=== PATIENT | male | born 1950 | race Caucasian/White ===

== ENCOUNTER 2019-07-05 18:00 | Inpatient (IN) | payer OTHER, MEDICARE, SELFPAY ==
[2019-07-05 18:13] VITALS: BP 156/94; PULSE 87; RESP 18; TEMP 36.4; O2SAT 93; BMI 59.1
--- NOTE | 2019-07-05 18:36 | CTR_ITS ---
PROCEDURE INFORMATION: Exam: CT Head Without Contrast Exam date and time: 07/05/2019 12:09 AM Age: 68 years old Clinical indication: Altered mental status/memory loss; Confusion or disorientation; Additional info: AMS TECHNIQUE: Imaging protocol: Computed tomography of the head without contrast. Total DLP: 1328.4 mGy-cm Radiation optimization: All CT scans at this facility use at least one of these dose optimization techniques: automated exposure control; mA and/or kV adjustment per patient size (includes targeted exams where dose is matched to clinical indication); or iterative reconstruction. COMPARISON: No relevant prior studies available. FINDINGS: Brain: There is mild cortical atrophy. There is no intracranial mass or hemorrhage. The expanded CSF spaces over the hemispheres are likely secondary to atrophy rather than chronic subdural hygromas. Midline shift: There is no shift of midline structures. Ventricles: Normal. No ventriculomegaly. Bones/joints: Unremarkable. No acute fracture. Sinuses: Visualized sinuses are unremarkable. No fluid levels. Mastoid air cells: Visualized mastoid air cells are well aerated. Soft tissues: Unremarkable. CT/CT head wo con* [id number] IMPRESSION: 1. Atrophy: 2. No acute intracranial finding. Radiation Dose CTDIVOL = (mGy): DLP = 1328.4 (mGy-cm)
[2019-07-05 19:21] LABS: Basophils % 0.2 %; Eosinophils # 0.1 10^3/uL (0.0-0.8); Eosinophils % 0.9 %; Hematocrit 31.4 % (42.0-52.0); Hemoglobin 8.1 g/dL (11.7-16.6); Lymphocytes # 0.6 10^3/uL (0.8-4.8); Lymphocytes % 5.5 %; Mean Corpuscular HGB Conc 25.8 g/dL (30.0-36.0); Mean Corpuscular Hemoglobin 22.3 pg (28.0-34.0); Mean Corpuscular Volume 86.3 fL (80-94); Mean Platelet Volume 8.8 fL (7.4-10.4); Monocytes # 0.6 10^3/uL (0.2-0.9); Monocytes % 6.2 %; Neutrophils # 8.6 10^3/uL (1.8-7.7); Neutrophils % 86.5 %; Nucleated Red Blood Cells % 0.4 %; Platelet Count 348 10^3/cmm (130-400); Red Blood Count 3.64 10^6/uL (4.1-5.3); Red Cell Distribution Width 22.5 % (12.1-15.1)
[2019-07-05 19:37] LABS: Alanine Aminotransferase 17 U/L (0-41); Albumin Level 3.2 g/dL (3.5-5.2); Alkaline Phosphatase 94 IU/L (40-130); Anion Gap 19.3 (5-19); Aspartate Amino Transferase 27 U/L (0-40); Blood Urea Nitrogen 52 mg/dL (8-23); Calcium 9.4 mg/Dl (8.8-10.2); Carbon Dioxide 20 mmol/L (22-29); Chloride 104 mmol/L (98-107); Globulin 4.5 g/dL (1.3-4.6); Glomerular Filtration Rate 17.5 mL/min (90-130); Glucose 150 mg/dL (74-106); Potassium 6.3 mmol/L (3.5-5.1); Sodium 137 mmol/L (136-145); Total Bilirubin 0.2 mg/dL (0.15-1.2); Total Protein 7.7 g/dL (6.6-8.7)
[2019-07-05 20:44] VITALS: BP 173/82; PULSE 94; RESP 18; O2SAT 90
--- NOTE | 2019-07-05 23:06 | W.ED.WEAKNES ---
HPI - Weakness General: Chief complaint: Weakness Stated complaint: AMS Time Seen by Provider: 07/05/19 23:06 [facility] ED PFSH: Statuses (acute, chronic, etc) shown below reflect problem list status as previously entered and may not be historically accurate Social History Smoking and tobacco status: former smoker Course Vital Signs: Vital signs: Vital Signs Temperature 97.5 F L 07/05/19 18:13 Pulse Rate 94 07/05/19 20:44 Respiratory Rate 18 07/05/19 20:44 Blood Pressure 173/82 07/05/19 20:44 Pulse Oximetry 90 07/05/19 20:44 MDM - Weakness Lab Data: Labs: Lab Results 07/05/19 07/05/19 Range/Units 09:01 09:01 WBC 10.0 (4.0-10.0) 10^3/ uL RBC 3.64 L (4.1-5.3) 10^6/u L Hgb 8.1 L (11.7-16.6) g/dL Hct 31.4 L (42.0-52.0) % MCV 86.3 (80-94) fL MCH 22.3 L (28.0-34.0) pg MCHC 25.8 L (30.0-36.0) g/dL RDW 22.5 H (12.1-15.1) % Plt Count 348 (130-400) 10^3/c mm MPV 8.8 (7.4-10.4) fL Neut % (Auto) 86.5 % Lymph % (Auto) 5.5 % [place] % (Auto) 6.2 % Eos % (Auto) 0.9 % Baso % (Auto) 0.2 % Neut # (Auto) 8.6 H (1.8-7.7) 10^3/u L Lymph # (Auto) 0.6 L (0.8-4.8) 10^3/u L [place] # (Auto) 0.6 (0.2-0.9) 10^3/u L Eos # (Auto) 0.1 (0.0-0.8) 10^3/u L Baso # (Auto) 0.0 (0.0-0.1) 10^3/u L Nucleated RBC % (a uto) 0.4 % Nucleated RBCs # 0.0 /100WBC Sodium 137 (136-145) mmol/L Potassium 6.3 H (3.5-5.1) mmol/L Chloride 104 (98-107) mmol/L Carbon Dioxide 20 L (22-29) mmol/L Anion Gap 19.3 H (5-19) BUN 52 H (8-23) mg/dL Creatinine 3.5 H (0.7-1.2) mg/dL GFR Calculation 17.5 L (90-130) mL/min Glucose 150 H (74-106) mg/dL Calcium 9.4 (8.8-10.2) mg/Dl Total Bilirubin 0.2 (0.15-1.2) mg/dL AST 27 (0-40) U/L ALT 17 (0-41) U/L Alkaline Phosphata se 94 (40-130) IU/L Total Protein 7.7 (6.6-8.7) g/dL Albumin 3.2 L (3.5-5.2) g/dL Globulin 4.5 (1.3-4.6) g/dL Discharge Plan Discharge Prescriptions: No Action potassium chloride 10 mEq Tablet Extended Release 10 meq PO DAILY RF: 0 amlodipine 10 mg Tablet 10 mg PO DAILY RF: 0 metformin 1,000 mg Tablet 1,000 mg PO BID RF: 0 furosemide 20 mg Tablet 20 mg PO DAILY RF: 0 lisinopril 40 mg Tablet 40 mg PO BID RF: 0 Laxative (sennosides) 25 mg Tablet 25 mg PO BID RF: 0 Stool Softener 100 mg Tablet 100 mg PO BID RF: 0 Coding Level of Care Code ED [facility] Manager for Alyceg Thierry
--- NOTE | 2019-07-05 23:10 | ED_ITS ---
Entered by Andra Rod, acting as scribe for Clayton Carter MD HPI - Weakness General: Chief complaint: Weakness Stated complaint: AMS Time Seen by Provider: 07/05/19 23:06 Source: patient Mode of arrival: wheelchair Limitations: no limitations History of Present Illness: HPI Narrative: 68 yo m came to the er with family for weakness. Onset was today. Pt states that he cannot walk anymore and that his legs are leaking fluid. Pt states that he also has multiple hernias as well. MD Complaint: generalized weakness Onset (ago): day(s) (today) Severity: mild Quality: numbness Relieving factors: none Exacerbating factors: none Associated symptoms: Denies chest pain, chills, easy bruising, fever(s), headache(s) or vomiting Review of Systems Const: Denies: fever or chills Eyes: Denies: change in vision ENMT: Denies: throat pain or mouth pain Card: Denies: chest pain Resp: Denies: shortness of breath GI: Denies: vomiting Musc: Denies: back pain or joint pain Skin/Breast: Denies: rash Neuro: Reports: difficulty walking; Denies: headache Psych: Denies: depression Endo: Denies: excessive urination [place]/Lymph: Denies: easy bruising All/Imm: Denies: hives PFSH ED PFSH: Statuses (acute, chronic, etc) shown below reflect problem list status as previously entered and may not be historically accurate Social History Smoking and tobacco status: former smoker Physical Exam Const: COMMON NORMALS: no apparent distress and healthy appearing HENMT: COMMON NORMALS: normocephalic and external nose normal HEAD & SCALP: normocephalic NOSE: external nose normal and no nasal discharge (nasal dischage) Eye: COMMON NORMALS: PERRL PUPIL: Yes PERRL Neck/C-Spine: COMMON NORMALS: full ROM and no lymphadenopathy Chest: COMMONS NORMALS: inspection of chest normal Resp: COMMON NORMALS: normal respiratory effort and clear to auscultation bilaterally AUSCULTATION: clear to auscultation bilaterally Cardio: COMMON NORMALS: regular rate and regular rhythm RATE: regular rate RHYTHM: regular rhythm GI: COMMON NORMALS: soft to palpation PALPATION: Yes soft Extremity: COMMON NORMALS: normal to inspection, full ROM and normal capillary refill Psych: COMMON NORMALS: mental status grossly normal and cooperative Skin: COMMON NORMALS: no rashes or lesions noted GENERAL SKIN EXAM: no rashes or lesions noted Course Vital Signs: Vital signs: Vital Signs Temperature 97.5 F L 07/05/19 18:13 Pulse Rate 94 07/05/19 20:44 Respiratory Rate 18 07/05/19 20:44 Blood Pressure 173/82 07/05/19 20:44 Pulse Oximetry 90 07/05/19 20:44 MDM - Weakness MDM Narrative: Medical decision making narrative: Patient presents here with generalized weakness and has acute kidney injury. Patient CT abdomen does show adrenal mass. I spoke to Dr. Rader who is admitting. Lab Data: Labs: Lab Results 07/05/19 07/05/19 07/05/19 Range/Units 19:01 19:01 23:28 WBC 10.0 (4.0-10.0) 10^3/ uL RBC 3.64 L (4.1-5.3) 10^6/u L Hgb 8.1 L (11.7-16.6) g/dL Hct 31.4 L (42.0-52.0) % MCV 86.3 (80-94) fL MCH 22.3 L (28.0-34.0) pg MCHC 25.8 L (30.0-36.0) g/dL RDW 22.5 H (12.1-15.1) % Plt Count 348 (130-400) 10^3/c mm MPV 8.8 (7.4-10.4) fL Neut % (Auto) 86.5 % Lymph % (Auto) 5.5 % [place] % (Auto) 6.2 % Eos % (Auto) 0.9 % Baso % (Auto) 0.2 % Neut # (Auto) 8.6 H (1.8-7.7) 10^3/u L Lymph # (Auto) 0.6 L (0.8-4.8) 10^3/u L [place] # (Auto) 0.6 (0.2-0.9) 10^3/u L Eos # (Auto) 0.1 (0.0-0.8) 10^3/u L Baso # (Auto) 0.0 (0.0-0.1) 10^3/u L Nucleated RBC % (a uto) 0.4 % Nucleated RBCs # 0.0 /100WBC Sodium 137 (136-145) mmol/L Potassium 6.3 H (3.5-5.1) mmol/L Chloride 104 (98-107) mmol/L Carbon Dioxide 20 L (22-29) mmol/L Anion Gap 19.3 H (5-19) BUN 52 H (8-23) mg/dL Creatinine 3.5 H (0.7-1.2) mg/dL GFR Calculation 17.5 L (90-130) mL/min Glucose 150 H (74-106) mg/dL Calcium 9.4 (8.8-10.2) mg/Dl Total Bilirubin 0.2 (0.15-1.2) mg/dL AST 27 (0-40) U/L ALT 17 (0-41) U/L Alkaline Phosphata se 94 (40-130) IU/L Ammonia 36 (16-60) umol/L Troponin T Baselin e (0-15) ng/mL Troponin T 120 Min [place] (0-15) ng/mL Delta Troponin T (0-10) ABS# Total Protein 7.7 (6.6-8.7) g/dL Albumin 3.2 L (3.5-5.2) g/dL Globulin 4.5 (1.3-4.6) g/dL 07/05/19 07/06/19 Range/Units 23:28 01:12 WBC (4.0-10.0) 10^3/ uL RBC (4.1-5.3) 10^6/u L Hgb (11.7-16.6) g/dL Hct (42.0-52.0) % MCV (80-94) fL MCH (28.0-34.0) pg MCHC (30.0-36.0) g/dL RDW (12.1-15.1) % Plt Count (130-400) 10^3/c mm MPV (7.4-10.4) fL Neut % (Auto) % Lymph % (Auto) % [place] % (Auto) % Eos % (Auto) % Baso % (Auto) % Neut # (Auto) (1.8-7.7) 10^3/u L Lymph # (Auto) (0.8-4.8) 10^3/u L [place] # (Auto) (0.2-0.9) 10^3/u L Eos # (Auto) (0.0-0.8) 10^3/u L Baso # (Auto) (0.0-0.1) 10^3/u L Nucleated RBC % (a uto) % Nucleated RBCs # /100WBC Sodium (136-145) mmol/L Potassium (3.5-5.1) mmol/L Chloride (98-107) mmol/L Carbon Dioxide (22-29) mmol/L Anion Gap (5-19) BUN (8-23) mg/dL Creatinine (0.7-1.2) mg/dL GFR Calculation (90-130) mL/min Glucose (74-106) mg/dL Calcium (8.8-10.2) mg/Dl Total Bilirubin (0.15-1.2) mg/dL AST (0-40) U/L ALT (0-41) U/L Alkaline Phosphata se (40-130) IU/L Ammonia (16-60) umol/L Troponin T Baselin e 96 H (0-15) ng/mL Troponin T 120 Min [place] 95.68 H (0-15) ng/mL Delta Troponin T -0.32 L (0-10) ABS# Total Protein (6.6-8.7) g/dL Albumin (3.5-5.2) g/dL Globulin (1.3-4.6) g/dL EKG Data^: EKG 1: EKG interpretation date: 07/05/19 EKG interpretation time: 23:44 Interpretation: nsr hr [address] or t wave abnormalities qrs 98 qtc 402 EKG 2: EKG interpretation date: 07/06/19 EKG interpretation time: 02:02 Interpretation: nsr hr [address] or t wave abnormalities Discharge Plan Discharge Patient Disposition: Admitted As Inpatient Clinical Impression: Weakness, Acute kidney injury Condition: Stable Referrals: Meliton Mario Jr, MD [Family Provider] - Coding Level of Care Code ED Coding Analyst for Chg Fwd Exam Problem Focused The documentation recorded by the scribe, Rod,Andra Kayla, accurately reflects the service I personally performed and the decisions made by me, Clayton Carter MD Jul 05, 2019 18:00
--- NOTE | 2019-07-05 23:13 | ECG_ITS ---
Measurements Intervals [place] Rate: 82 P: 95 PA: 182 QRS: 10 QRSD: 98 T: 85 QT: 363 QTc: 426 SINUS RHYTHM WITH MARKED SINUS ARRHYTHMIA POSSIBLE ANTERIOR MYOCARDIAL INFARCTION , PROBABLY OLD [30 ms Q WAVE IN V3/V4, OR R < 0.2 mV IN V4] Compared to ECG 11/02/2016 00:51:21 No significant changes Electronically Signed On 07-06-2019 19:20:18 CALL CENTER NURSE by Janet Hopson M.D. [email or web address]
--- NOTE | 2019-07-05 23:13 | CTR_ITS ---
PROCEDURE INFORMATION: Exam: CT Abdomen And Pelvis Without Contrast Exam date and time: 07/05/2019 12:09 AM Age: 68 years old Clinical indication: Abdominal pain; Generalized TECHNIQUE: Imaging protocol: Computed tomography of the abdomen and pelvis without contrast. Total DLP: 2691.34 mGy-cm Radiation optimization: All CT scans at this facility use at least one of these dose optimization techniques: automated exposure control; mA and/or kV adjustment per patient size (includes targeted exams where dose is matched to clinical indication); or iterative reconstruction. COMPARISON: CT Abdomen w IV contras* [id number] 11/02/2016 1:57 PM FINDINGS: Limitations: The absence of intravenous contrast lessens the sensitivity of this study for solid organ abnormalities. Mediastinum: There is a small hiatal hernia. Liver: There is no focal abnormality within the liver. Gallbladder and bile ducts: The gallbladder is normal. Pancreas: The pancreas is normal. Spleen: The spleen is normal. Adrenals: There is a right adrenal mass measuring 4.0 x 4.6 by 4.9 cm which is larger than on 11/02/2016 when it measured approximately 3.3 x 4.3 x 3.8 cm. In patient with no cancer history, consider resection. In patient with cancer history, consider biopsy or PET-CT. ([facility], ACR White Paper, 2017) Kidneys and ureters: The kidneys are normal. There is no evidence of renal or ureteral calcifications. There is no evidence of hydronephrosis. Stomach and bowel: There is a large hypogastric ventral hernia containing several loops of bowel without incarceration or obstruction. Appendix: No appendix is specifically identified. There is no evidence of fluid collections or inflammatory stranding in the right lower quadrant. Intraperitoneal space: Unremarkable. No free air. No significant fluid collection. Vasculature: Unremarkable. No abdominal aortic aneurysm. Lymph nodes: Unremarkable. No enlarged lymph nodes. Bladder: Unremarkable as visualized. Reproductive: Unremarkable as visualized. Bones/joints: The lumbar spine demonstrates moderate degenerative changes at multiple levels. Soft tissues: Unremarkable. CT/CT abdomen pelvis wo con [id number] IMPRESSION: 1. Enlarging right adrenal mass, further evaluation is recommended 2. Large ventral hernia 3. No acute finding Radiation Dose CTDIVOL = (mGy): DLP = 2691.34 (mGy-cm)
[2019-07-06] VITALS (8 sets, daily range): BP systolic 141–176; BP diastolic 63–84; PULSE 72–92; RESP 12–22; TEMP 36.6–36.9; O2SAT 91–95
[2019-07-06 00:12] LABS: Ammonia 36 umol/L (16-60)
[2019-07-06 00:14] LABS: Troponin(5th) Baseline 96 ng/mL (0-15)
--- NOTE | 2019-07-06 01:13 | ECG_ITS ---
Measurements Intervals [place] Rate: 78 P: 83 ID: [id number] QRS: 19 QRSD: 101 T: 76 QT: 383 QTc: 436 SINUS RHYTHM WITH SINUS ARRHYTHMIA POSSIBLE ANTERIOR MYOCARDIAL INFARCTION , PROBABLY OLD [30 ms Q WAVE IN V3/V4, OR R < 0.2 mV IN V4] Compared to ECG 11/02/2016 00:51:21 No significant changes Electronically Signed On 07-06-2019 19:23:01 ELECTRONEURODIAGNOSTIC TECHNOLOGIST by Janet Hopson M.D. [email or web address]
[2019-07-06] MEDS: sodium chloride 0.9% 1,000 ML 999 ML IV (01:51)
[2019-07-06 02:08] LABS: Troponin 5 2HR 95.68 ng/mL (0-15)
[2019-07-06 02:11] LABS: Troponin 5 2HR Delta -0.32 ABS# (0-10)
--- NOTE | 2019-07-06 02:15 | ECG_ITS ---
Measurements Intervals [place] Rate: 78 P: 83 [place]: 183 QRS: 19 QRSD: 101 T: 76 QT: 383 QTc: 436 SINUS RHYTHM WITH SINUS ARRHYTHMIA POSSIBLE ANTERIOR MYOCARDIAL INFARCTION , PROBABLY OLD [30 ms Q WAVE IN V3/V4, OR R < 0.2 mV IN V4] Compared to ECG 11/02/2016 00:51:21 No significant changes Electronically Signed On 07-06-2019 19:20:32 HYDRAULIC PLUMBER HELPER by Janet Hopson M.D. [email or web address]
--- NOTE | 2019-07-06 02:25 | P.HP_ITS ---
Providers/Chief Complaint Admitting Physician: Anna Rader Primary Care Provider: Lou Kamara Chief Complaint: AMS History of Present Illness Dominga Mosqueda is a 68 year old male who presented to the emergency room with a chief complaint of weakness and not acting right since Friday. His states that prior to that he had been slowly getting weaker and more short of breath with exertion but things seem to change on Friday. He became so weak he was falling down and having difficulty and sometimes even inability to get up. He started saying crazy things which is not like him. Because he was so weak he quit drinking so he would not have to get up to go to the bathroom. He has been having increasing oozing from his groin area and increase and abdominal girth. He knows he has gained some weight but is not sure exactly how much. He has had increasing nonproductive cough, sounds like some orthopnea combined with limitations related to back discomfort. He has had decreased urine output but denies any difficulty urinating. He was last seen by his primary care provider and in January or February. No recent changes to medications. Wears KIRTI hose chronically. On arrival to the emergency room, vital signs were stable but patient was found to have an elevated creatinine at 3.5 and a potassium of 6.3. He received a liter of fluid in the emergency room. He was complaining of some abdominal discomfort related to his abdominal wall hernias and increasing issues with constipation secondary to this. CT of the abdomen and pelvis was done revealing an enlarging adrenal mass on the right side. There is no hydronephrosis. The hypogastric ventral hernia contains several loops of bowel but no evidence of incarceration or obstruction are noted. CT of the head was also unremarkable for acute findings. With his clinical presentation and laboratory abnormalities, he is being admitted for further evaluation and treatment. His only other complaint is being raw in the groin. Review of Systems Const: Reports: chills, change in weight (gain) and snoring; Denies: fever Eyes: Denies: change in vision ENMT: Reports: other (dry); Denies: throat pain or nasal congestion Card: Denies: chest pain, palpitations or lightheadedness Resp: Reports: shortness of breath, non-productive cough (mild) and other (orthopnea) GI: Reports: abdominal pain and constipation; Denies: nausea or vomiting : Reports: decreased urine ouput; Denies: difficulty urinating Musc: Reports: back pain Skin/Breast: Reports: rash (raw in groin); Denies: sores Neuro: Reports: confusion and involuntary movements (recently worse, had been progressing over the last 6 months) Darvin/Lymph: Reports: easy bruising; Denies: easy bleeding Medications/Allergies Home Medications Medication Instructions Recorded Confirmed Last Taken Type amlodipine 10 mg PO DAILY 07/05/19 07/05/19 07/05/19 History docusate sodium [Stool Softener] 100 mg PO BID 07/05/19 07/05/19 07/05/19 History furosemide 20 mg PO DAILY 07/05/19 07/05/19 07/05/19 History lisinopril 40 mg PO BID 07/05/19 07/05/19 07/05/19 History metformin 1,000 mg PO BID 07/05/19 07/05/19 07/05/19 History potassium chloride 10 meq PO DAILY 07/05/19 07/05/19 07/05/19 History sennosides [Laxative (sennosides)] 25 mg PO BID 07/05/19 07/05/19 07/05/19 History Allergies Allergy/AdvReac Type Severity Reaction Status Date / Time No Known Allergies Allergy Verified 07/05/19 18:21 PFSH Acute PFSH: Statuses (acute, chronic, etc) shown below reflect problem list status as previously entered and may not be historically accurate Medical History (Updated 07/06/19 @ 04:18 by Anna Rader MD) Hypertension (Acute) Morbid obesity (Acute) Prediabetes (Acute) patient report, on metformin Ventral hernia (Acute) Surgical History (Updated 07/06/19 @ 02:54 by Anna Rader MD) S/P vasectomy (Acute) Status post surgical removal of nail matrix of toe (Acute) Family History (Updated 07/06/19 @ 02:46 by Anna Rader MD) Other Diabetes Denies family history of CAD (coronary artery disease) Chronic kidney disease (CKD) Social History (Updated 07/06/19 @ 02:45 by Anna Rader MD) Smoking and tobacco status: current some day smoker cigars Cigar details: rare Alcohol intake: never Substance/Drug Use: never Vitals/I&O/Wt Last Vital Signs Temp 97.5 F L 07/05/19 18:13 Pulse 94 07/05/19 20:44 Resp 18 07/05/19 20:44 BP 173/82 07/05/19 20:44 Pulse Ox 90 07/05/19 20:44 Weight last 48 hrs Weight 181.437 kg Physical Exam Const: COMMON NORMALS: no apparent distress, oriented x3 and alert GENERAL APPEARANCE: cooperative NUTRITIONAL APPEARANCE: obese morbidly obese SALTY ENTATION/CONSCIOUSNESS: Yes confused (intermittent) HENMT: COMMON NORMALS: normocephalic and head/scalp atraumatic Eye: COMMON NORMALS: PERRL, EOMs intact bilaterally and no scleral icterus Neck/C-Spine: COMMON NORMALS: full ROM Resp: COMMON NORMALS: clear to auscultation bilaterally EFFORT & INSPECTION: Yes able to speak in complete sentences and Yes symmetric chest movement AUSCULTATION: no rales, no rhonchi, no wheezes and diminished lung sounds bilateral in the lower lung hunter Cardio: COMMON NORMALS: regular rate and regular rhythm; negative for no gallops, negative for no murmurs and negative for no rub JUGULAR VENOUS DISTENTION: JVD positive to the level of the angle of the jaw GI: COMMON NORMALS: negative for non-tender OTHER: Abdomen morbidly obese. Large pannus with peau d'orange appearance. Large ventral hernia below and including the umbilicus that is reducible. Degree of edema increases distally. No obvious oozing presently. : COMMON NORMALS: Yes no scrotal swelling PENIS: normal penis OTHER: Grossly edematous suprapubic area Extremity: GENERAL: Yes edema (1+ bilateral lower extremities, KIRTI hose are in place) Neuro: COMMON NORMALS: moves all extremities GAIT: Yes unable to assess gait MOTOR EXAM: tremor resting tremor bialteral upper extremity Skin: NARRATIVE SKIN EXAM: Patient with some mild excoriation in bilateral groins with drainage of some serous fluid. He has erythema with satellite lesions and significant odor. No open wounds otherwise noted. In the buttock area there is some ecchymotic appearing tissue that I think may be some varicosity. He has some bruising to both upper extremities and some chronic stasis changes with scabbing to both lower extremities. No open wounds noted to the lower extremities.. Urinary Catheter Management^: Allen: Cath Placed During This Visit: yes (will be placed) Urethral Indwelling: Yes Reason for Continuing Indwelling Catheter: Other (Accurate measurement of urine output in a patient with renal failure, wound management) Data Labs: Other Labs: Laboratory Tests 07/05/19 07/05/19 07/05/19 19:01 19:01 23:28 WBC 10.0 Hgb 8.1 L Hct 31.4 L Plt Count 348 Sodium 137 Potassium 6.3 H Chloride 104 Carbon Dioxide 20 L Anion Gap 19.3 H BUN 52 H Creatinine 3.5 H GFR Calculation 17.5 L Glucose 150 H Calcium 9.4 Total Bilirubin 0.2 AST 27 ALT 17 Alkaline Phosphata se 94 Ammonia 36 Troponin T Baselin e Troponin T 120 Min [place] Delta Troponin T Total Protein 7.7 Albumin 3.2 L Globulin 4.5 07/05/19 07/06/19 07/06/19 23:28 01:12 01:12 WBC Hgb Hct Plt Count Sodium Potassium 5.7 H Chloride Carbon Dioxide Anion Gap BUN Creatinine GFR Calculation Glucose Calcium Total Bilirubin AST ALT Alkaline Phosphata se Ammonia Troponin T Baselin e 96 H Troponin T 120 Min [place] 95.68 H Delta Troponin T -0.32 L Total Protein Albumin Globulin Imaging^: CT Abd/Pel: Radiologist's impression: IMPRESSION: 1. Enlarging right adrenal mass, further evaluation is recommended 2. Large ventral hernia 3. No acute finding CT Head: Radiologist's impression: IMPRESSION: 1. Atrophy: 2. No acute intracranial finding. EKG^: EKG 1: I personally reviewed and interpreted this EKG as follows: My Interpretation: EKG was slightly prominent T waves, nonspecific anterior changes, sinus rhythm 82 with some sinus arrhythmia EKG 2: I personally reviewed and interpreted this EKG as follows: My Interpretation: Third EKG with less prominent T waves, sinus rhythm 78 with some nonspecific anterior changes, A&P Assessment and plan (1) Weakness: Multifactorial related to recent electrolyte changes, fluid overload Status: Acute Code(s): R53.1 - Weakness (2) Acute renal failure: Suspect patient has some undiagnosed chronic kidney disease with recent development of acute renal failure related to decreasing oral intake and continuation of medications such as ARCHANA inhibitor, diuretic and metformin. Suspect some degree of poor perfusion contributing as well. Monitor response to treatment, check UA Status: Acute Qualifiers: Acute renal failure type: with acute tubular necrosis Qualified Code(s): N17.0 - Acute kidney failure with tubular necrosis Code(s): N17.9 - Acute kidney failure, unspecified (3) Hyperkalemia: Hold home potassium, initially treating with some fluids and will need some IV Lasix. We will give 1 dose of Kayexalate. Status: Acute Code(s): E87.5 - Hyperkalemia (4) Adrenal mass: Identified on CT imaging and noted to be increasing in size. Will need further evaluation but would like to get some of the acute issues improved first. Will check a random cortisol presently and further evaluation can likely be arranged in the outpatient setting depending on clinical course. Status: Acute Code(s): E27.8 - Other specified disorders of adrenal gland (5) Tinea corporis: Nystatin powder and Diflucan x1 dose Status: Acute Code(s): B35.4 - Tinea corporis (6) Hypertension: Chronically on amlodipine and diuretic therapy. And holding both initially. Anticipate resumption of diuretic therapy soon. May have to consider holding amlodipine but have continued it presently. Status: Acute Qualifiers: Hypertension type: renovascular hypertension Qualified Code(s): I15.0 - Renovascular hypertension Code(s): I10 - Essential (primary) hypertension (7) Chronic edema: Denies any history of heart failure. Has been on diuretics in the past due to edema. Does not recall ever having had an echocardiogram. He has had issues with morbid obesity and some may be related to this but I suspect he probably has some degree of diastolic dysfunction from obesity hypoventilation and possibly undiagnosed sleep apnea. Status: Acute Code(s): R60.9 - Edema, unspecified (8) Prediabetes: Blood sugars are slightly elevated on arrival. Holding metformin due to renal dysfunction. Will check A1c and cover with some insulin in interim Status: Acute Code(s): R73.03 - Prediabetes (9) Tremor: Sounds like present but intermittent for ~6 months. Worse over weekend. Suspect related to metabolic abnormalities. Status: Acute Code(s): R25.1 - Tremor, unspecified (10) Morbid obesity: With BMI 59 Status: Acute Code(s): E66.01 - Morbid (severe) obesity due to excess calories Additional A&P Information Additional A&P Information: Admitting to medical bed with telemetry with plan to treat hyperkalemia and acute renal failure with some fluids overnight. Anticipate transition to diuretic therapy tomorrow. Holding Lasix, lisinopril, metformin. I have ordered a Allen catheter due to the fact that we need to keep a close eye on urine output under the circumstances combined with the skin findings in the groin area and need to keep this area dry. We will watch what I's and O's closely. Lovenox for DVT prophylaxis Full code Plans discussed with patient and his and both were given an opportunity to ask questions Attestations Medical Necessity Statement*: Patient is a 68-year-old gentleman with acute renal failure, hyperkalemia, significant weakness and significant volume overload in addition to other issues noted above. He has progressively declined at home and anticipate his stay will require more than 2 midnights for correction of metabolic and other abnormalities indicated. Coding Level of Care Code Acute Adventure Education Teacher for Gisela Guadarrama Diagnoses Weakness R53.1 Acute renal failure N17.0 Acute renal failure type: with acute tubular necrosis Hyperkalemia E87.5 Adrenal mass E27.8 Tinea corporis B35.4 Hypertension I15.0 Hypertension type: renovascular hypertension Chronic edema R60.9 Prediabetes R73.03 Tremor R25.1 Morbid obesity E66.01
[2019-07-06 03:43] LABS: Potassium 5.7 mmol/L (3.5-5.1)
[2019-07-06 04:08] LABS: Add On to Lab Order(s) Added
[2019-07-06] MEDS: sodium chloride 0.9% 1,000 ML 125 ML IV ×2 (04:28→12:08)
[2019-07-06] MEDS: heparin 5,000 unit/mL INJ 1 mL 5000 UNIT SUBCUT ×2 (04:28→16:21)
--- NOTE | 2019-07-06 05:13 | ECG_ITS ---
Measurements Intervals [place] Rate: 78 P: 78 ME: 175 QRS: 28 QRSD: 106 T: 85 QT: 377 QTc: 431 SINUS RHYTHM WITH OCCASIONAL SUPRAVENTRICULAR PREMATURE COMPLEXES LOW QRS VOLTAGE IN PRECORDIAL LEADS [QRS DEFLECTION < 1.0 mV IN CHEST LEADS] POSSIBLE ANTERIOR MYOCARDIAL INFARCTION [30 ms Q WAVE IN V3/V4, OR R < 0.2 mV IN V4], PROBABLY OLD Compared to ECG 11/02/2016 00:51:21 No significant changes Electronically Signed On 07-06-2019 19:23:06 MAINTENANCE PARTS TECHNICIAN by Janet Hopson M.D. [email or web address]
[2019-07-06] MEDS: fluconazole 100 mg Tablet 200 MG PO (05:57)
[2019-07-06] MEDS: sodium polystyrene sulfonate 15 gm/60 mL Btl PO (05:58)
[2019-07-06 06:09] LABS: Magnesium 2.3 mg/dL (1.7-2.3); Phosphorus 5.3 mg/dL (2.5-4.5); Troponin 5 6HR 99.71 ng/L (0-15)
[2019-07-06 06:16] LABS: Troponin 5 6HR Delta 3.71 ng/L (0-12)
[2019-07-06 06:22] LABS: Urine Appearance Clear (CLEAR); Urine Color Yellow (Yellow); pH Urine 5 (5-7)
[2019-07-06 06:23] LABS: Add Urine Culture? No; Add Urine Microscopic? YES; Bacteria Urine 1+; Bilirubin Urine Neg (NEGATIVE); Blood Urine Neg (Negative); Glucose Urine UA Norm (Normal); Ketones Urine Negative (Negative); Leukocyte Esterase Urine Negative (Negative); Nitrate Urine Negative (Negative); Protein Urine 3+ (Negative); RBC Urine RARE /hpf (0-2); Urobilinogen Urine Norm (Negative)
[2019-07-06 07:14] LABS: NT Pro B Type Natriuretic Pept 17 pg/mL (0-125)
[2019-07-06 07:15] LABS: Glucose Point of Care 188 mg/dL (70-110)
[2019-07-06 07:40] LABS: Urine Creatinine 113 mg/dL (39-259); Urine Random Sodium 42 mmol/L
[2019-07-06 07:42] LABS: Basophils % 0.3 %; Eosinophils # 0.1 10^3/uL (0.0-0.8); Eosinophils % 0.9 %; Hematocrit 27.4 % (42.0-52.0); Hemoglobin 7.3 g/dL (11.7-16.6); Lymphocytes # 0.8 10^3/uL (0.8-4.8); Mean Corpuscular HGB Conc 26.6 g/dL (30.0-36.0); Mean Corpuscular Hemoglobin 22.4 pg (28.0-34.0); Mean Platelet Volume 9.1 fL (7.4-10.4); Monocytes # 0.7 10^3/uL (0.2-0.9); Monocytes % 7.4 %; Neutrophils # 7.8 10^3/uL (1.8-7.7); Neutrophils % 82.1 %; Nucleated Red Blood Cells # 0.1 /100WBC; Nucleated Red Blood Cells % 0.5 %; Platelet Count 372 10^3/cmm (130-400); Red Blood Count 3.26 10^6/uL (4.1-5.3); Red Cell Distribution Width 22.1 % (12.1-15.1); White Blood Count 9.5 10^3/uL (4.0-10.0)
[2019-07-06 08:43] LABS: Add On to Lab Order(s) Added
[2019-07-06 09:09] LABS: Estmated Average Glucose 157; Hemoglobin A1C 7.1 % (4.0-6.0)
[2019-07-06 09:21] LABS: Anion Gap 18.8 (5-19); Blood Urea Nitrogen 51 mg/dL (8-23); Calcium 9.1 mg/Dl (8.8-10.2); Carbon Dioxide 20 mmol/L (22-29); Chloride 106 mmol/L (98-107); Glomerular Filtration Rate 17.5 mL/min (90-130); Glucose 160 mg/dL (74-106); Potassium 5.8 mmol/L (3.5-5.1); Sodium 139 mmol/L (136-145); Uric Acid 9.8 mg/dL (3.4-7.0)
[2019-07-06] MEDS: docusate sodium 100 mg Capsule PO ×2 (09:56→19:50)
[2019-07-06] MEDS: amlodipine 10 mg Tablet PO (09:56)
[2019-07-06 10:05] LABS: Cortisol Random 8.65 mcg/dL (2.47-19.5)
[2019-07-06 11:37] LABS: Glucose Point of Care 140 mg/dL (70-110)
[2019-07-06] MEDS: nystatin powder 15 gm Btl 1 APPLIC TOPICAL ×2 (12:04→19:51)
--- NOTE | 2019-07-06 12:24 | P.PN_ITS ---
Subjective Subjective: Interval history: Chart reviewed including on [employer]. Labs noted. Patient seen and examined, and son at bedside, patient sitting up in bed, aware that he is in the hospital, is able to collaborate history documented in H&P, below which the patient is able to provide himself. Reportedly does not sleep in bed and has been quite uncomfortable here since admission. Spends most of his time sitting up in a recliner due to inability to maintain supine position due to aggravated back pain. Started on diabetic diet. Allen catheter in place, noted concentrated urine in bag. Medications: Reviewed: Yes Medication Review Details: Active Medications Generic Name Dose Route Start Last Admin Trade Name Freq PRN Reason Stop Dose Admin Acetaminophen 650 mg 07/06/19 03:26 Tylenol PO Q6H PRN Mild/Mod Pain Or Temp >/= 101 Amlodipine Besylat e 10 mg 07/06/19 09:00 07/06/19 09:56 Norvasc PO 10 mg DAILY SANDRA Administration Dextrose 25 ml 07/06/19 04:15 D50w IVP ONCE PRN hypoglycemia prot ocol Protocol Dextrose 50 ml 07/06/19 04:15 D50w IVP PRN PRN hypoglycemia prot ocol Protocol Docusate Sodium 100 mg 07/06/19 09:00 07/06/19 09:56 Colace PO 100 mg BID SANDRA Administration Glucagon 1 mg 07/06/19 04:15 Glucagen IM ONCE PRN Adult Acute Hypog lycemia Prot. Protocol Heparin Sodium (Be ef Lung) 5,000 unit 07/06/19 03:26 07/06/19 04:28 Heparin SUBCUT 5,000 unit Q12H SANDRA Administration Sodium Chloride 1,000 mls @ 75 ml s/hr 07/06/19 03:26 07/06/19 12:08 Sodium Chloride 0.9% IV 125 mls/hr .[id number] SANDRA Administration Dextrose 500 mls @ 100 mls /hr 07/06/19 04:15 D5w IV ONCE PRN Adult Acute Hypog lycemia Prot Protocol Insulin Aspart 0 unit 07/06/19 08:00 07/06/19 12:08 Novolog SUBCUT Not Given WM&BEDTIME SANDRA Protocol Nystatin 1 applic 07/06/19 09:00 07/06/19 12:04 Nystatin Powder TOPICAL 1 mg BID SANDRA Administration Ondansetron HCl 4 mg 07/06/19 03:26 Zofran PO Q8H PRN NAUSEA No Known Allergies Allergy (Verified 07/05/19 18:21) Vitals/I&O/Wt Last Vital Signs Temp 98.4 F 07/06/19 10:54 Pulse 82 07/06/19 10:54 Resp 18 07/06/19 10:54 BP 141/63 07/06/19 10:54 Pulse Ox 91 07/06/19 10:54 07/05/19 07/06/19 07/06/19 22:59 06:59 14:59 Intake Total 1318.333 / 1318.333 Output Total 150 / 150 Balance 1168.333 / 1168.333 Weight last 48 hrs Weight 200.76 kg Weight 181.437 kg Physical Exam Const: COMMON NORMALS: no apparent distress and alert GENERAL APPEARANCE: not comfortable (Appears somewhat visibly uncomfortable; unable to lay down) NUTRITIONAL APPEARANCE: obese (Severely morbidly obese) ORIENTATION/CONSCIOUSNESS: Yes oriented to person, Yes oriented to place and Yes oriented to time HENMT: COMMON NORMALS: normocephalic and head/scalp atraumatic HEAD & SCALP: normocephalic and atraumatic Eye: COMMON NORMALS: PERRL, EOMs intact bilaterally and no scleral icterus PUPIL: Yes PERRL Neck/C-Spine: GENERAL: Yes other (short, thick neck) Resp: COMMON NORMALS: normal respiratory effort EFFORT & INSPECTION: Yes able to speak in complete sentences and Yes other (examination significantly limited by body habitus, on RA) Cardio: COMMON NORMALS: regular rate, regular rhythm, S1 normal heart sound and S2 normal heart sound RATE: regular rate RHYTHM: regular rhythm HEART SOUNDS: S1 normal and S2 normal OTHER: exam limited by body habitus GI: INSPECTION: Yes abdominal wall edema Laterality: bilateral, Yes central obesity (large pannus) and Yes visible herniation (umbilical and ventral, both reducible) : BLADDER/KIDNEY EXAM: Yes catheter in place Catheter type (Male): urethral Extremity: OTHER: Noted brawny edema of bilateral LEs Neuro: SENSORIUM/ORIENTATION: Yes alert, Yes oriented to person, Yes oriented to place and Yes oriented to time GAIT: Yes unable to assess gait (currently unable to weight-bear) Psych: COMMON NORMALS: cooperative and affect normal Skin: GENERAL SKIN EXAM: other (Noted brawny edema of bilateral lower extremities) Urinary Catheter Management^: Allen: Cath Placed During This Visit: yes Urethral Indwelling: Yes Reason for Continuing Indwelling Catheter: Other (impaired ambulation and need for accurate Is & Os) Urinary Catheter Date of Insertion: 07/06/19 A&P Assessment and plan (1) Acute metabolic encephalopathy: -Noted to have multiple electrolyte abnormalities and renal impairment (uremia) -Baseline mental status appears to be alert and oriented x3 -CT head indicative of atrophy, no other acute findings -correction of electrolytes and renal function as noted below -fall precautions -reorient as needed -no signs of acute infection at this time Status: Acute Code(s): G93.41 - Metabolic encephalopathy (2) Acute renal failure: -from review of medical record, appears to have at least CKD stage 3, with prior baseline creatinine around 1.5-1.6. -Suspect acute renal impairment is multifactorial given medications such as ARCHANA inhibitor, diuretics, potassium supplements, and metformin all of which are currently on hold. -Avoid other nephrotoxins, renally dose meds -Imaging reviewed with noted normal kidneys, no indication of hydronephrosis -UA noted with proteinuria, sterile bacteriuria -Continue gentle IV fluid hydration -Noted slight increase in phosphorus, uric acid. Magnesium within normal limi ts. -Continue to monitor electrolytes particularly potassium; and renal function -Allen catheter placed, continue to monitor urine output Status: Acute Qualifiers: Acute renal failure type: with acute tubular necrosis Qualified Code(s): N17.0 - Acute kidney failure with tubular necrosis Code(s): N17.9 - Acute kidney failure, unspecified (3) Adrenal mass: -Noted enlarging right adrenal mass which had been noted in CT scan of the abdomen done in October 2016; at that time was suspicious for adenoma. Will likely need follow-up evaluation/imaging -Random cortisol within normal limits Status: Acute Code(s): E27.8 - Other specified disorders of adrenal gland (4) Weakness: -Likely related to acute electrolyte abnormalities -Fall precautions -PT/OT evaluations Status: Acute Code(s): R53.1 - Weakness Additional A&P Information Additional A&P Information: -Morbid obesity: BMI-65 kg/m2 -Acute on chronic normocytic anemia, has history of iron deficiency anemia. Baseline hemoglobin appears to be 8-9. Continue to monitor H&H closely. Transfuse if continued drop and/or symptomatic -Hypertension; on amlodipine, other oral antihypertensives on hold secondary to renal impairment -[id number] DM type II; A1c-7.1. Start on diabetic diet as tolerated. Hold metformin. Accu-Cheks, ISS -Multilevel DJD; pain control as needed -History of chronic lower extremity edema, was previously been seen in wound care clinic chronically wears KIRTI hose. History of peripheral vascular disease with venous stasis ulcers -Hyperkalemia, likely secondary to potassium supplementation. Continue to hold potassium supplementation and monitor potassium. Already received dose of ka yexelate -Extensive intertigo involving pannus and inguinal areas: continue nystatin powder and already received oral dose of Fluconazole. Keep skin areas clean and dry -DVT ppx with heparin -Dispo: home -Code status: FULL code Attestations Medical Necessity Statement*: Patient requires continued hospitalization for management of multiple electrolyte abnormalities, impaired renal function. Coding Level of Care Code Acute Hospital Security Officer for Gisela Guadarrama Diagnoses Acute metabolic encephalopathy G93.41 Acute renal failure N17.0 Acute renal failure type: with acute tubular necrosis Adrenal mass E27.8 Weakness R53.1
[2019-07-06] MEDS: TRAMadol 50 mg Tablet 100 MG PO (16:20)
[2019-07-06 16:26] LABS: Glucose Point of Care 178 mg/dL (70-110)
[2019-07-06 21:34] LABS: Glucose Point of Care 144 mg/dL (70-110)
[2019-07-06] MEDS: lidocaine 5% Patch 1 PATCH TOPICAL (22:14)
[2019-07-07] VITALS: BP 162/75; PULSE 65; RESP 18; TEMP 36.6; O2SAT 97
[2019-07-07] MEDS: sodium chloride 0.9% 1,000 ML 125 ML IV ×2 (02:00→14:57)
[2019-07-07] MEDS: heparin 5,000 unit/mL INJ 1 mL 5000 UNIT SUBCUT ×2 (02:35→14:57)
[2019-07-07] MEDS: TRAMadol 50 mg Tablet 100 MG PO ×2 (02:35→20:43)
[2019-07-07 04:00] VITALS: BP 145/69; PULSE 63; RESP 16; TEMP 36.6; O2SAT 92
[2019-07-07 06:00] LABS: Basophils % 0.3 %; Eosinophils # 0.2 10^3/uL (0.0-0.8); Eosinophils % 2.1 %; Hematocrit 27.8 % (42.0-52.0); Hemoglobin 7.3 g/dL (11.7-16.6); Lymphocytes # 1.1 10^3/uL (0.8-4.8); Lymphocytes % 12.2 %; Mean Corpuscular HGB Conc 26.3 g/dL (30.0-36.0); Mean Corpuscular Hemoglobin 22.4 pg (28.0-34.0); Mean Corpuscular Volume 85.3 fL (80-94); Mean Platelet Volume 8.7 fL (7.4-10.4); Monocytes # 0.8 10^3/uL (0.2-0.9); Monocytes % 9.2 %; Neutrophils # 6.6 10^3/uL (1.8-7.7); Neutrophils % 75.3 %; Nucleated Red Blood Cells % 0.3 %; Platelet Count 335 10^3/cmm (130-400); Red Blood Count 3.26 10^6/uL (4.1-5.3); Red Cell Distribution Width 22.1 % (12.1-15.1); White Blood Count 8.7 10^3/uL (4.0-10.0)
[2019-07-07 06:16] LABS: Anion Gap 13.6 (5-19); Blood Urea Nitrogen 51 mg/dL (8-23); Calcium 8.9 mg/Dl (8.8-10.2); Carbon Dioxide 21 mmol/L (22-29); Chloride 112 mmol/L (98-107); Glomerular Filtration Rate 22.6 mL/min (90-130); Glucose 137 mg/dL (74-106); Potassium 5.6 mmol/L (3.5-5.1); Sodium 141 mmol/L (136-145)
[2019-07-07 07:02] LABS: Glucose Point of Care 143 mg/dL (70-110)
[2019-07-07 07:32] VITALS: BP 156/99; PULSE 85; RESP 20; TEMP 36.4; O2SAT 95
--- NOTE | 2019-07-07 11:13 | PC.NURSE ---
the patients gave him a sponge bath .
[2019-07-07] MEDS: lidocaine 5% Patch 1 PATCH TOPICAL (11:22)
[2019-07-07] MEDS: nystatin powder 15 gm Btl 1 APPLIC TOPICAL ×2 (11:24→18:32)
[2019-07-07] MEDS: amlodipine 10 mg Tablet PO (11:24)
[2019-07-07] MEDS: docusate sodium 100 mg Capsule PO ×2 (11:32→18:31)
[2019-07-07 11:58] VITALS: BP 177/75; PULSE 67; RESP 20; TEMP 36.4; O2SAT 91
[2019-07-07 12:14] LABS: Glucose Point of Care 133 mg/dL (70-110)
--- NOTE | 2019-07-07 15:06 | PM.PN ---
Subjective Subjective: Interval history: AM labs noted, had 2050 mL urine output overnight, had 1 very large BM, decreasing K, improving renal function. BP stable. Patient seen and examined, family at bedside, sitting in bariatric recliner which seems to be very comfortable for him. He is alert and oriented x3, in good spirits, seems to be acting more like himself by his . Has his KIRTI hose on. Previously noted bilateral upper extremity tremors have resolved. Patient has been able to weight-bear a little better today. Chronic back pain seems to be tolerable. Continues to have good urine output through Allen catheter. Has good appetite. Medications: Reviewed: Yes Medication Review Details: Active Medications Generic Name Dose Route Start Last Admin Trade Name Freq PRN Reason Stop Dose Admin Acetaminophen 650 mg 07/06/19 03:26 Tylenol PO Q6H PRN Mild/Mod Pain Or Temp >/= 101 Amlodipine Besylat e 10 mg 07/06/19 09:00 07/07/19 11:24 Norvasc PO 10 mg DAILY SANDRA Administration Dextrose 25 ml 07/06/19 04:15 D50w IVP ONCE PRN hypoglycemia prot ocol Protocol Dextrose 50 ml 07/06/19 04:15 D50w IVP PRN PRN hypoglycemia prot ocol Protocol Docusate Sodium 100 mg 07/06/19 09:00 07/07/19 11:32 Colace PO 100 mg BID SANDRA Administration Glucagon 1 mg 07/06/19 04:15 Glucagen IM ONCE PRN Adult Acute Hypog lycemia Prot. Protocol Heparin Sodium (Be ef Lung) 5,000 unit 07/06/19 03:26 07/07/19 14:57 Heparin SUBCUT 5,000 unit Q12H SANDRA Administration Sodium Chloride 1,000 mls @ 75 ml s/hr 07/06/19 03:26 07/07/19 14:57 Sodium Chloride 0.9% IV 125 mls/hr .[id number] SANDRA Administration Dextrose 500 mls @ 100 mls /hr 07/06/19 04:15 D5w IV ONCE PRN Adult Acute Hypog lycemia Prot Protocol Insulin Aspart 0 unit 07/06/19 08:00 07/07/19 12:37 Novolog SUBCUT Not Given WM&BEDTIME SANDRA Protocol Lidocaine 1 patch 07/06/19 21:00 07/07/19 11:22 Lidoderm 5% Patc h TOPICAL 1 patch [id number] SANDRA Administration Nystatin 1 applic 07/06/19 09:00 07/07/19 11:24 Nystatin Powder TOPICAL 2 mg BID SANDRA Administration Ondansetron HCl 4 mg 07/06/19 03:26 Zofran PO Q8H PRN NAUSEA Tramadol HCl 100 mg 07/06/19 14:46 07/07/19 02:35 Ultram PO 100 mg Q4H PRN Administration MODERATE PAIN No Known Allergies Allergy (Verified 07/05/19 18:21) Vitals/I&O/Wt Last Vital Signs Temp 97.6 F 07/07/19 11:58 Pulse 67 07/07/19 11:58 Resp 20 H 07/07/19 11:58 BP 177/75 07/07/19 11:58 Pulse Ox 91 07/07/19 11:58 07/07/19 07/07/19 07/07/19 06:59 14:59 22:59 Intake Total 1480 / 1480 Output Total 1100 / 3150 Balance -1100 / -828.476 1980 / 1480 Weight last 48 hrs Weight 201.667 kg Weight 200.76 kg Weight 181.437 kg Physical Exam Const: COMMON NORMALS: no apparent distress, oriented x3 and alert GENERAL APPEARANCE: cooperative and comfortable NUTRITIONAL APPEARANCE: obese (Severely morbidly obese) ORIENTATION/CONSCIOUSNESS: Yes oriented to person, Yes oriented to place and Yes oriented to time OTHER: -Sitting in bariatric recliner HENMT: COMMON NORMALS: normocephalic and head/scalp atraumatic HEAD & SCALP: normocephalic and atraumatic Eye: COMMON NORMALS: PERRL, EOMs intact bilaterally and no scleral icterus PUPIL: Yes PERRL Neck/C-Spine: GENERAL: Yes other (short, thick neck) Resp: COMMON NORMALS: normal respiratory effort EFFORT & INSPECTION: Yes able to speak in complete sentences and Yes other (examination significantly limited by body habitus, on RA) Cardio: COMMON NORMALS: regular rate, regular rhythm, S1 normal heart sound and S2 normal heart sound RATE: regular rate RHYTHM: regular rhythm HEART SOUNDS: S1 normal and S2 normal OTHER: exam limited by body habitus GI: INSPECTION: Yes central obesity (large pannus) and Yes visible herniation (umbilical and ventral, both reducible) : BLADDER/KIDNEY EXAM: Yes catheter in place Extremity: OTHER: Noted brawny edema of bilateral LEs, KIRTI hose on Neuro: COMMON NORMALS: oriented x3 SENSORIUM/ORIENTATION: Yes alert, Yes oriented to person, Yes oriented to place and Yes oriented to time GAIT: Yes unable to assess gait (currently unable to weight-bear) Psych: COMMON NORMALS: mental status grossly normal, thought process normal, cooperative, affect normal and speech normal SPEECH: Yes normal speech THOUGHT PROCESS: normal thought process Skin: GENERAL SKIN EXAM: other (Noted brawny edema of bilateral lower extremities) Urinary Catheter Management^: Allen: Cath Placed During This Visit: yes Urethral Indwelling: Yes Reason for Continuing Indwelling Catheter: Acute Urinary Retention or Obstruction A&P Assessment and plan (1) Acute metabolic encephalopathy: -Noted to have multiple electrolyte abnormalities and renal impairment (uremia); these are improving -Baseline mental status appears to be alert and oriented x3 and he is almost at his baseline today -CT head indicative of atrophy, no other acute findings -correction of electrolytes and renal function as noted below -fall precautions -reorient as needed -no signs of acute infection at this time Status: Acute Code(s): G93.41 - Metabolic encephalopathy (2) Acute renal failure: -from review of medical record, appears to have at least CKD stage 3, with prior baseline creatinine around 1.5-1.6. -Suspect acute renal impairment is multifactorial given medications such as ARCHANA inhibitor, diuretics, potassium supplements, multiple laxatives and metformin all of which are currently on hold. -Avoid other nephrotoxins, renally dose meds -Imaging reviewed with noted normal kidneys, no indication of hydronephrosis -UA noted with proteinuria, sterile bacteriuria -Continue gentle IV fluid hydration -Noted slight increase in phosphorus, uric acid. Magnesium within normal limits. -Continue to monitor electrolytes particularly potassium; and renal function -Allen catheter placed, continue to monitor urine output Status: Acute Qualifiers: Acute renal failure type: with acute tubular necrosis Qualified Code(s): N17.0 - Acute kidney failure with tubular necrosis Code(s): N17.9 - Acute kidney failure, unspecified (3) Adrenal mass: -Noted enlarging right adrenal mass which had been noted in CT scan of the abdomen done in October 2016; at that time was suspicious for adenoma. Will likely need follow-up evaluation/imaging -Random cortisol within normal limits Status: Acute Code(s): E27.8 - Other specified disorders of adrenal gland (4) Weakness: -Likely related to acute electrolyte abnormalities; weakness has improved today -Fall precautions -PT/OT evaluations appreciated Status: Acute Code(s): R53.1 - Weakness Additional A&P Information Additional A&P Information: -Morbid obesity: BMI-66 kg/m2 -Acute on chronic normocytic anemia, has history of iron deficiency anemia. Baseline hemoglobin appears to be 8-9. Continue to monitor H&H closely. Transfuse if continued drop and/or symptomatic -Hypertension; on amlodipine, other oral antihypertensives on hold secondary to renal impairment -Szt-epxdxse-cpnuuoacs DM type II; A1c-7.1. Start on diabetic diet as tolerated. Hold metformin. Accu-Cheks, ISS -Multilevel DJD; pain control as needed -History of chronic lower extremity edema, was previously been seen in wound care clinic chronically wears KIRTI hose. History of peripheral vascular disease with venous stasis ulcers -Hyperkalemia, likely secondary to potassium supplementation. Continue to hold potassium supplementation and monitor potassium. Already received dose of kayexelate; can give additional dose today -Extensive intertigo involving pannus and inguinal areas: continue nystatin powder and already received oral dose of Fluconazole. Keep skin areas clean and dry -Chronic constipation -DVT ppx with heparin -Dispo: home -Code status: FULL code Attestations Medical Necessity Statement*: Patient requires hospitalization for continued management of acute renal impairment, hyperkalemia, on IVF hydration, needs continued monitoring of electrolytes and renal function. Coding Level of Care Code Acute Building Associate for Chg Fwd Exam Problem Focused Diagnoses Acute metabolic encephalopathy G93.41 Acute renal failure N17.0 Acute renal failure type: with acute tubular necrosis Adrenal mass E27.8 Weakness R53.1
[2019-07-07 15:31] VITALS: BP 132/72; PULSE 67; RESP 18; TEMP 36.4; O2SAT 94
[2019-07-07 16:56] LABS: Glucose Point of Care 152 mg/dL (70-110)
[2019-07-07 20:35] VITALS: BP 191/93; PULSE 79; RESP 20; TEMP 36.4; O2SAT 94
[2019-07-07 21:49] LABS: Glucose Point of Care 157 mg/dL (70-110)
[2019-07-08] VITALS (8 sets, daily range): BP systolic 144–177; BP diastolic 73–92; PULSE 78–106; RESP 18–22; TEMP 36.2–36.7; O2SAT 90–94; BMI 65.8
[2019-07-08] MEDS: sodium chloride 0.9% 1,000 ML 125 ML IV ×2 (04:44→16:35)
[2019-07-08] MEDS: heparin 5,000 unit/mL INJ 1 mL 5000 UNIT SUBCUT ×2 (04:45→16:35)
[2019-07-08 04:59] LABS: Basophils % 0.4 %; Eosinophils # 0.2 10^3/uL (0.0-0.8); Eosinophils % 1.7 %; Hematocrit 30.9 % (42.0-52.0); Hemoglobin 8.2 g/dL (11.7-16.6); Lymphocytes # 0.8 10^3/uL (0.8-4.8); Lymphocytes % 8.9 %; Mean Corpuscular HGB Conc 26.5 g/dL (30.0-36.0); Mean Corpuscular Hemoglobin 23.3 pg (28.0-34.0); Mean Corpuscular Volume 87.8 fL (80-94); Mean Platelet Volume 8.9 fL (7.4-10.4); Monocytes # 0.6 10^3/uL (0.2-0.9); Monocytes % 6.7 %; Neutrophils # 7.2 10^3/uL (1.8-7.7); Neutrophils % 81.5 %; Nucleated Red Blood Cells % 0 %; Platelet Count 352 10^3/cmm (130-400); Red Blood Count 3.52 10^6/uL (4.1-5.3); Red Cell Distribution Width 22.3 % (12.1-15.1); White Blood Count 8.9 10^3/uL (4.0-10.0)
[2019-07-08 05:22] LABS: Anion Gap 15.5 (5-19); Blood Urea Nitrogen 52 mg/dL (8-23); Calcium 9.3 mg/Dl (8.8-10.2); Carbon Dioxide 20 mmol/L (22-29); Chloride 109 mmol/L (98-107); Glomerular Filtration Rate 22.6 mL/min (90-130); Glucose 159 mg/dL (74-106); Potassium 5.5 mmol/L (3.5-5.1); Sodium 139 mmol/L (136-145)
[2019-07-08] MEDS: TRAMadol 50 mg Tablet 100 MG PO (05:34)
[2019-07-08 07:08] LABS: Glucose Point of Care 150 mg/dL (70-110)
[2019-07-08] MEDS: lidocaine 5% Patch 1 PATCH TOPICAL (09:18)
[2019-07-08] MEDS: docusate sodium 100 mg Capsule PO ×2 (09:18→17:49)
[2019-07-08] MEDS: amlodipine 10 mg Tablet PO (09:18)
[2019-07-08] MEDS: nystatin powder 15 gm Btl 1 APPLIC TOPICAL ×2 (09:19→17:49)
--- NOTE | 2019-07-08 10:13 | PM.PN ---
Subjective Subjective: Interval history: AM labs noted, will give dose of calcium gluconate and kayexelate due to continued hyperkalemia. Had 800 mL urine output overnight. Repeat BMP in PM. Patient seen and examined, moved to more comfortable room, resting in bed, family at bedside, overnight, had episode during which his catheter got kinked and had to be fixed, he did not get much sleep because of this; seems to be draining appropriately now. Medications: Reviewed: Yes Medication Review Details: Active Medications Generic Name Dose Route Start Last Admin Trade Name Freq PRN Reason Stop Dose Admin Acetaminophen 650 mg 07/06/19 03:26 Tylenol PO Q6H PRN Mild/Mod Pain Or Temp >/= 101 Amlodipine Besylat e 10 mg 07/06/19 09:00 07/08/19 09:18 Norvasc PO 10 mg DAILY SANDRA Administration Calcium Gluconate 1 gm 07/08/19 10:30 Calcium Gluconat e IVP 07/08/19 10:31 ONCE ONE Dextrose 25 ml 07/06/19 04:15 D50w IVP ONCE PRN hypoglycemia prot ocol Protocol Dextrose 50 ml 07/06/19 04:15 D50w IVP PRN PRN hypoglycemia prot ocol Protocol Docusate Sodium 100 mg 07/06/19 09:00 07/08/19 09:18 Colace PO 100 mg BID SANDRA Administration Glucagon 1 mg 07/06/19 04:15 Glucagen IM ONCE PRN Adult Acute Hypog lycemia Prot. Protocol Heparin Sodium (Be ef Lung) 5,000 unit 07/06/19 03:26 07/08/19 04:45 Heparin SUBCUT 5,000 unit Q12H SANDRA Administration Sodium Chloride 1,000 mls @ 75 ml s/hr 07/06/19 03:26 07/08/19 04:44 Sodium Chloride 0.9% IV 125 mls/hr .[id number] SANDRA Administration Dextrose 500 mls @ 100 mls /hr 07/06/19 04:15 D5w IV ONCE PRN Adult Acute Hypog lycemia Prot Protocol Insulin Aspart 0 unit 07/06/19 08:00 07/08/19 09:18 Novolog SUBCUT 2 unit WM&BEDTIME SANDRA Administration Protocol Lidocaine 1 patch 07/06/19 21:00 07/08/19 09:18 Lidoderm 5% Patc h TOPICAL 1 patch [id number] SANDRA Administration Nystatin 1 applic 07/06/19 09:00 07/08/19 09:19 Nystatin Powder TOPICAL 2 mg BID SANDRA Administration Ondansetron HCl 4 mg 07/06/19 03:26 Zofran PO Q8H PRN NAUSEA Sodium Polystyrene Sulfonate 15 gm 07/08/19 10:11 Kayexalate PO 07/08/19 10:12 ONCE ONE Tramadol HCl 100 mg 07/06/19 14:46 07/08/19 05:34 Ultram PO 100 mg Q4H PRN Administration MODERATE PAIN No Known Allergies Allergy (Verified 07/05/19 18:21) Vitals/I&O/Wt Last Vital Signs Temp 97.1 F L 07/08/19 08:00 Pulse 78 07/08/19 08:00 Resp 20 H 07/08/19 08:00 BP 153/77 07/08/19 08:00 Pulse Ox 92 07/08/19 08:00 07/07/19 07/08/19 07/08/19 22:59 06:59 14:59 Intake Total 200 / 1930 1000 / 2930 240 / 240 Output Total 800 / 800 Balance 200 / 1930 200 / 2130 240 / 240 Weight last 48 hrs Weight 201.667 kg Physical Exam Const: COMMON NORMALS: no apparent distress, oriented x3 and alert GENERAL APPEARANCE: cooperative and comfortable NUTRITIONAL APPEARANCE: obese (Severely morbidly obese) ORIENTATION/CONSCIOUSNESS: Yes oriented to person, Yes oriented to place and Yes oriented to time OTHER: Resting in bed HENMT: COMMON NORMALS: normocephalic and head/scalp atraumatic HEAD & SCALP: normocephalic and atraumatic Eye: COMMON NORMALS: PERRL, EOMs intact bilaterally and no scleral icterus PUPIL: Yes PERRL Neck/C-Spine: GENERAL: Yes other (short, thick neck) Resp: COMMON NORMALS: normal respiratory effort EFFORT & INSPECTION: Yes able to speak in complete sentences and Yes other (examination significantly limited by body habitus, on RA) Cardio: COMMON NORMALS: regular rate, regular rhythm, S1 normal heart sound and S2 normal heart sound RATE: regular rate RHYTHM: regular rhythm HEART SOUNDS: S1 normal and S2 normal OTHER: exam limited by body habitus GI: INSPECTION: Yes central obesity (large pannus) and Yes visible herniation (umbilical and ventral, both reducible) : BLADDER/KIDNEY EXAM: Yes catheter in place Extremity: OTHER: Noted brawny edema of bilateral LEs, KIRTI hose on Neuro: COMMON NORMALS: oriented x3 SENSORIUM/ORIENTATION: Yes alert, Yes oriented to person, Yes oriented to place and Yes oriented to time GAIT: Yes unable to assess gait (currently unable to weight-bear) Psych: COMMON NORMALS: mental status grossly normal, thought process normal, cooperative, affect normal and speech normal SPEECH: Yes normal speech THOUGHT PROCESS: normal thought process Skin: NARRATIVE SKIN EXAM: -small area of macerated skin on R posterior mid thigh area with some oozing noted. GENERAL SKIN EXAM: other (Noted brawny edema of bilateral lower extremities) Urinary Catheter Management^: Allen: Cath Placed During This Visit: no A&P Assessment and plan (1) Acute renal failure: -from review of medical record, appears to have at least CKD stage 3, with prior baseline creatinine around 1.5-1.6. -Suspect acute renal impairment is multifactorial given medications such as ARCHANA inhibitor, diuretics, potassium supplements, multiple laxatives and metformin all of which are currently on hold. -Avoid other nephrotoxins, renally dose meds -Imaging reviewed with noted normal kidneys, no indication of hydronephrosis -UA noted with proteinuria, sterile bacteriuria -Continue gentle IV fluid hydration -Noted slight increase in phosphorus, uric acid. Magnesium within normal limits. -Continue to monitor electrolytes particularly potassium; and renal function -Allen catheter placed, continue to monitor urine output; assess daily for removal Status: Acute Qualifiers: Acute renal failure type: with acute tubular necrosis Qualified Code(s): N17.0 - Acute kidney failure with tubular necrosis Code(s): N17.9 - Acute kidney failure, unspecified (2) Acute metabolic encephalopathy: -Noted to have multiple electrolyte abnormalities and renal impairment (uremia); these are improving -Baseline mental status appears to be alert and oriented x3; returned to his baseline -CT head indicative of atrophy, no other acute findings -correction of electrolytes and renal function as noted below -fall precautions -reorient as needed -no signs of acute infection at this time Status: Resolved Code(s): G93.41 - Metabolic encephalopathy (3) Adrenal mass: -Noted enlarging right adrenal mass which had been noted in CT scan of the abdomen done in October 2016; at that time was suspicious for adenoma. Will likely need follow-up evaluation/imaging -Random cortisol within normal limits Status: Acute Code(s): E27.8 - Other specified disorders of adrenal gland (4) Weakness: -Likely related to acute electrolyte abnormalities; weakness continues to improve -Fall precautions -PT/OT evaluations appreciated Status: Acute Code(s): R53.1 - Weakness Additional A&P Information Additional A&P Information: -Morbid obesity: BMI-66 kg/m2 -Acute on chronic normocytic anemia, has history of iron deficiency anemia. Baseline hemoglobin appears to be 8-9. Continue to monitor H&H closely. Transfuse if continued drop and/or symptomatic -Hypertension; on amlodipine, other oral antihypertensives on hold secondary to renal impairment -Vcu-lciemmc-rjahekmrm DM type II; A1c-7.1. On diabetic diet as tolerated. Continue to hold metformin. Accu-Cheks, ISS -Multilevel DJD; pain control as needed -History of chronic lower extremity edema, was previously been seen in wound care clinic chronically wears KIRTI hose. History of peripheral vascular disease with venous stasis ulcers -Hyperkalemia, likely secondary to potassium supplementation. Continue to hold potassium supplementation and monitor potassium. Will give additional dose of kayexelate and calcium gluconate -Extensive intertigo involving pannus and inguinal areas: continue nystatin powder and already received oral dose of Fluconazole. Keep skin areas clean and dry -Chronic constipation -DVT ppx with heparin -Dispo: home -Code status: FULL code Attestations Medical Necessity Statement*: Patient requires hospitalization for continued management of acute renal failure, hyperkalemia; on IVF hydration and needs continued monitoring of renal function and electrolytes. Coding Level of Care Code Acute Box Printing Machine Operator for Chg Fwd Exam Problem Focused Diagnoses Acute renal failure N17.0 Acute renal failure type: with acute tubular necrosis Acute metabolic encephalopathy G93.41 Adrenal mass E27.8 Weakness R53.1
[2019-07-08] MEDS: sodium polystyrene sulfonate 15 gm/60 mL Btl PO (11:33)
[2019-07-08] MEDS: calcium gluconate 0.1 gm/mL 10% SDV 10mL 1 GM IVP (11:34)
[2019-07-08 11:35] LABS: Glucose Point of Care 146 mg/dL (70-110)
[2019-07-08 15:54] LABS: Anion Gap 14.5 (5-19); Blood Urea Nitrogen 50 mg/dL (8-23); Calcium 9.4 mg/Dl (8.8-10.2); Carbon Dioxide 21 mmol/L (22-29); Chloride 110 mmol/L (98-107); Glomerular Filtration Rate 23.5 mL/min (90-130); Glucose 171 mg/dL (74-106); Potassium 5.5 mmol/L (3.5-5.1); Sodium 140 mmol/L (136-145)
[2019-07-08 16:39] LABS: Glucose Point of Care 172 mg/dL (70-110)
[2019-07-08 21:18] LABS: Glucose Point of Care 145 mg/dL (70-110)
[2019-07-09] VITALS (8 sets, daily range): BP systolic 149–172; BP diastolic 64–91; PULSE 77–116; RESP 20–22; TEMP 36.4–36.8; O2SAT 90–97
[2019-07-09] MEDS: heparin 5,000 unit/mL INJ 1 mL 5000 UNIT SUBCUT ×2 (03:54→16:20)
[2019-07-09] MEDS: TRAMadol 50 mg Tablet 100 MG PO ×2 (03:54→18:32)
[2019-07-09 06:48] LABS: Glucose Point of Care 117 mg/dL (70-110)
[2019-07-09 07:06] LABS: Anion Gap 13.2 (5-19); Basophils % 0.4 %; Blood Urea Nitrogen 45 mg/dL (8-23); Carbon Dioxide 18 mmol/L (22-29); Chloride 112 mmol/L (98-107); Eosinophils # 0.2 10^3/uL (0.0-0.8); Eosinophils % 3.4 %; Glucose 119 mg/dL (74-106); Hematocrit 26.3 % (42.0-52.0); Hemoglobin 6.7 g/dL (11.7-16.6); Lymphocytes # 0.9 10^3/uL (0.8-4.8); Lymphocytes % 12.1 %; Mean Corpuscular HGB Conc 25.5 g/dL (30.0-36.0); Mean Corpuscular Hemoglobin 21.7 pg (28.0-34.0); Mean Corpuscular Volume 85.1 fL (80-94); Monocytes # 0.7 10^3/uL (0.2-0.9); Monocytes % 9.3 %; Neutrophils # 5.2 10^3/uL (1.8-7.7); Nucleated Red Blood Cells % 0 %; Platelet Count 318 10^3/cmm (130-400); Potassium 5.2 mmol/L (3.5-5.1); Red Blood Count 3.09 10^6/uL (4.1-5.3); Red Cell Distribution Width 22.1 % (12.1-15.1); Sodium 138 mmol/L (136-145); White Blood Count 7.1 10^3/uL (4.0-10.0)
[2019-07-09] MEDS: docusate sodium 100 mg Capsule PO ×2 (08:22→17:56)
[2019-07-09] MEDS: amlodipine 10 mg Tablet PO (08:22)
[2019-07-09] MEDS: lidocaine 5% Patch 1 PATCH TOPICAL (08:22)
[2019-07-09] MEDS: sodium chloride 0.9% 1,000 ML 75 ML IV (08:22)
[2019-07-09] MEDS: nystatin powder 15 gm Btl 1 APPLIC TOPICAL ×2 (08:23→17:58)
[2019-07-09 11:39] LABS: Glucose Point of Care 169 mg/dL (70-110)
--- NOTE | 2019-07-09 11:40 | PC.SOCIAL ---
IMM Page 2 of IMM explained to and signed by patient. Initialed, dated, and timed and placed in chart. Copy provided to patient.
--- NOTE | 2019-07-09 13:04 | P.PN_ITS ---
Subjective Subjective: Interval history: AM labs noted, drop in Hg, will transfuse 2 units. Discontinue IVF. Renal function continues to improve. Had 2510 mL urine output overnight. at bedside, resting in bed, was able to actually sleep for about 4 to 5 hours in the bed overnight. Discussed need for blood transfusion given noted drop in hemoglobin he is agreeable to. No BM yet today. Allen catheter draining well, noted more concentrated urine and mild hematuria in tubing. Medications: Reviewed: Yes Medication Review Details: Active Medications Generic Name Dose Route Start Last Admin Trade Name Freq PRN Reason Stop Dose Admin Acetaminophen 650 mg 07/06/19 03:26 Tylenol PO Q6H PRN Mild/Mod Pain Or Temp >/= 101 Amlodipine Besylat e 10 mg 07/06/19 09:00 07/09/19 08:22 Norvasc PO 10 mg DAILY SANDRA Administration Dextrose 25 ml 07/06/19 04:15 D50w IVP ONCE PRN hypoglycemia prot ocol Protocol Dextrose 50 ml 07/06/19 04:15 D50w IVP PRN PRN hypoglycemia prot ocol Protocol Docusate Sodium 100 mg 07/06/19 09:00 07/09/19 08:22 Colace PO 100 mg BID SANDRA Administration Glucagon 1 mg 07/06/19 04:15 Glucagen IM ONCE PRN Adult Acute Hypog lycemia Prot. Protocol Heparin Sodium (Be ef Lung) 5,000 unit 07/06/19 03:26 07/09/19 03:54 Heparin SUBCUT 5,000 unit Q12H SANDRA Administration Hydralazine HCl 10 mg 07/08/19 10:15 Apresoline IVP Q4H PRN SYSTOLIC BLOOD [place] ESSURE Dextrose 500 mls @ 100 mls /hr 07/06/19 04:15 D5w IV ONCE PRN Adult Acute Hypog lycemia Prot Protocol Insulin Aspart 0 unit 07/06/19 08:00 07/09/19 12:02 Novolog SUBCUT 2 unit WM&BEDTIME SANDRA Administration Protocol Lidocaine 1 patch 07/06/19 21:00 07/09/19 08:22 Lidoderm 5% Patc h TOPICAL 1 patch [id number] SANDRA Administration Nystatin 1 applic 07/06/19 09:00 07/09/19 08:23 Nystatin Powder TOPICAL 1 mg BID SANDRA Administration Ondansetron HCl 4 mg 07/06/19 03:26 Zofran PO Q8H PRN NAUSEA Tramadol HCl 100 mg 07/06/19 14:46 07/09/19 03:54 Ultram PO 100 mg Q4H PRN Administration MODERATE PAIN No Known Allergies Allergy (Verified 07/05/19 18:21) Vitals/I&O/Wt Last Vital Signs Temp 97.7 F 07/09/19 11:05 Pulse 92 07/09/19 11:05 Resp 20 H 07/09/19 11:05 BP 158/64 07/09/19 11:05 Pulse Ox 91 07/09/19 11:05 07/08/19 07/09/19 07/09/19 22:59 06:59 14:59 Intake Total 697.083 / 2007.083 1272.917 / 3280.000 240 / 240 Output Total 1760 / 1760 750 / 2510 Balance -1062.917 / 247.083 522.917 / 770.000 240 / 240 Weight last 48 hrs Weight 202.302 kg Physical Exam Const: COMMON NORMALS: no apparent distress, oriented x3 and alert GENERAL APPEARANCE: cooperative and comfortable NUTRITIONAL APPEARANCE: obese (Severely morbidly obese) ORIENTATION/CONSCIOUSNESS: Yes oriented to person, Yes oriented to place and Yes oriented to time OTHER: Resting in bed HENMT: COMMON NORMALS: normocephalic and head/scalp atraumatic HEAD & SCALP: normocephalic and atraumatic Eye: COMMON NORMALS: PERRL, EOMs intact bilaterally and no scleral icterus PUPIL: Yes PERRL Neck/C-Spine: GENERAL: Yes other (short, thick neck) Resp: COMMON NORMALS: normal respiratory effort EFFORT & INSPECTION: Yes able to speak in complete sentences and Yes other (examination significantly limited by body habitus, on RA) Cardio: COMMON NORMALS: regular rate, regular rhythm, S1 normal heart sound and S2 normal heart sound RATE: regular rate RHYTHM: regular rhythm HEART SOUNDS: S1 normal and S2 normal OTHER: exam limited by body habitus GI: INSPECTION: Yes central obesity (large pannus) and Yes visible herniation (umbilical and ventral, both reducible) : BLADDER/KIDNEY EXAM: Yes catheter in place Extremity: OTHER: Noted brawny edema of bilateral LEs, KIRTI hose on Neuro: COMMON NORMALS: oriented x3 SENSORIUM/ORIENTATION: Yes alert, Yes oriented to person, Yes oriented to place and Yes oriented to time GAIT: Yes unable to assess gait (currently unable to weight-bear) Psych: COMMON NORMALS: mental status grossly normal, thought process normal, cooperative, affect normal and speech normal SPEECH: Yes normal speech THOUGHT PROCESS: normal thought process Skin: NARRATIVE SKIN EXAM: -small area of macerated skin on R posterior mid thigh area with some oozing noted. GENERAL SKIN EXAM: other (Noted brawny edema of bilateral lower extremities) Urinary Catheter Management^: Allen: Cath Placed During This Visit: no A&P Assessment and plan (1) Acute renal failure: -from review of medical record, appears to have at least CKD stage 3, with prior baseline creatinine around 1.5-1.6. -Suspect acute renal impairment is multifactorial given medications such as ARCHANA inhibitor, diuretics, potassium supplements, multiple laxatives and metformin all of which are currently on hold. -Avoid other nephrotoxins, renally dose meds -Imaging reviewed with noted normal kidneys, no indication of hydronephrosis -UA noted with proteinuria, sterile bacteriuria -Will d/c gentle IV fluids, encourage oral hydration -Noted slight increase in phosphorus, uric acid. Magnesium within normal limits. -Continue to monitor electrolytes particularly potassium; and renal function -Allen catheter placed, continue to monitor urine output; assess daily for removal Status: Acute Qualifiers: Acute renal failure type: with acute tubular necrosis Qualified Code(s): N17.0 - Acute kidney failure with tubular necrosis Code(s): N17.9 - Acute kidney failure, unspecified (2) Acute metabolic encephalopathy: -Noted to have multiple electrolyte abnormalities and renal impairment (uremia); these are improving -Baseline mental status appears to be alert and oriented x3; returned to his baseline -CT head indicative of atrophy, no other acute findings -correction of electrolytes and renal function as noted below -fall precautions -reorient as needed -no signs of acute infection at this time Status: Resolved Code(s): G93.41 - Metabolic encephalopathy (3) Adrenal mass: -Noted enlarging right adrenal mass which had been noted in CT scan of the abdomen done in October 2016; at that time was suspicious for adenoma. Will likely need follow-up evaluation/imaging -Random cortisol within normal limits Status: Acute Code(s): E27.8 - Other specified disorders of adrenal gland (4) Weakness: -Likely related to acute electrolyte abnormalities; weakness continues to improve -Fall precautions -PT/OT evaluations appreciated Status: Acute Code(s): R53.1 - Weakness Additional A&P Information Additional A&P Information: -Morbid obesity: BMI-66 kg/m2 -Acute on chronic normocytic anemia, has history of iron deficiency anemia. Baseline hemoglobin appears to be 8-9. Due to noted drop in Hg today, will transfuse 2 units. Continue to monitor H&H closely. -Hypertension; on amlodipine, other oral antihypertensives on hold secondary to renal impairment -[id number] DM type II; A1c-7.1. On diabetic diet as tolerated. Continue to hold metformin. Accu-Cheks, ISS -Multilevel DJD; pain control as needed -History of chronic lower extremity edema, was previously been seen in wound care clinic chronically wears KIRTI hose. History of peripheral vascular disease with venous stasis ulcers -Hyperkalemia, likely secondary to potassium supplementation. Continue to hold potassium supplementation and monitor potassium. Will give additional dose of kayexelate and calcium gluconate -Extensive intertigo involving pannus and inguinal areas: continue nystatin powder and already received oral dose of Fluconazole. Keep skin areas clean and dry -Chronic constipation -DVT ppx with heparin. Will hold heparin for now due to worsening anemia -Dispo: home -Code status: FULL code Attestations Medical Necessity Statement*: Patient requires hospitalization for continued management of acute renal impairment, acutely worsening anemia, requiring transfusion of blood products. Time Spent in Patient Care: 16 - 35 minutes Coding Level of Care Code Acute Chief Construction Inspector for Gisela Guadarrama Exam Problem Focused Diagnoses Acute renal failure N17.0 Acute renal failure type: with acute tubular necrosis Acute metabolic encephalopathy G93.41 Adrenal mass E27.8 Weakness R53.1
--- NOTE | 2019-07-09 13:47 | PC.PT ---
Discharge PT per pt and fam request D/T now at [facility]
[2019-07-09 17:04] LABS: Glucose Point of Care 141 mg/dL (70-110)
[2019-07-09] MEDS: FUROsemide 10 mg/mL SDV 2mL 20 MG IVP (20:38)
[2019-07-09] MEDS: lactulose oral liq 20 gm/30 mL UDC 30 GM PO (20:38)
[2019-07-09 20:53] LABS: Glucose Point of Care 134 mg/dL (70-110)
[2019-07-10] VITALS (22 sets, daily range): BP systolic 124–186; BP diastolic 62–84; PULSE 70–100; RESP 16–20; TEMP 36.2–37; O2SAT 91–96
[2019-07-10] MEDS: sodium chloride 0.9% 100 ML 175 ML (04:02)
[2019-07-10 05:14] LABS: Basophils % 0.2 %; Eosinophils # 0.2 10^3/uL (0.0-0.8); Eosinophils % 2.3 %; Hematocrit 28.5 % (42.0-52.0); Hemoglobin 7.6 g/dL (11.7-16.6); Lymphocytes # 0.8 10^3/uL (0.8-4.8); Lymphocytes % 9.6 %; Mean Corpuscular HGB Conc 26.7 g/dL (30.0-36.0); Mean Corpuscular Hemoglobin 22.7 pg (28.0-34.0); Mean Corpuscular Volume 85.1 fL (80-94); Mean Platelet Volume 8.8 fL (7.4-10.4); Monocytes # 0.7 10^3/uL (0.2-0.9); Monocytes % 7.9 %; Neutrophils # 6.5 10^3/uL (1.8-7.7); Neutrophils % 79.2 %; Nucleated Red Blood Cells % 0.2 %; Platelet Count 297 10^3/cmm (130-400); Red Blood Count 3.35 10^6/uL (4.1-5.3); White Blood Count 8.3 10^3/uL (4.0-10.0)
[2019-07-10 05:30] LABS: Blood Urea Nitrogen 45 mg/dL (8-23); Carbon Dioxide 20 mmol/L (22-29); Chloride 106 mmol/L (98-107); Glucose 140 mg/dL (74-106); Sodium 136 mmol/L (136-145)
[2019-07-10 06:38] LABS: Glucose Point of Care 142 mg/dL (70-110)
[2019-07-10] MEDS: TRAMadol 50 mg Tablet 100 MG PO ×2 (08:52→16:43)
[2019-07-10] MEDS: lidocaine 5% Patch 1 PATCH TOPICAL (08:53)
[2019-07-10] MEDS: lactulose oral liq 20 gm/30 mL UDC 30 GM PO ×3 (08:54→20:20)
[2019-07-10] MEDS: docusate sodium 100 mg Capsule PO ×2 (08:54→18:53)
[2019-07-10] MEDS: amlodipine 10 mg Tablet PO (08:54)
[2019-07-10] MEDS: nystatin powder 15 gm Btl 1 APPLIC TOPICAL (08:55)
--- NOTE | 2019-07-10 09:10 | P.PN_ITS ---
Subjective Subjective: Interval history: AM labs noted, patient received 1 unit of PRBCs overnight, noted increase in Hg. Will transfuse additional unit. Cr stable today. Had 1600 mL urine output overnight. Patient seen and examined, at bedside, sitting in bariatric recliner by window, seems more alert and is in good spirits today. Has had 2 bowel movements today and his abdomen feels much better. Currently receiving his second unit of blood. Medications: Reviewed: Yes Medication Review Details: Active Medications Generic Name Dose Route Start Last Admin Trade Name Freq PRN Reason Stop Dose Admin Acetaminophen 650 mg 07/06/19 03:26 Tylenol PO Q6H PRN Mild/Mod Pain Or Temp >/= 101 Amlodipine Besylat e 10 mg 07/06/19 09:00 07/10/19 08:54 Norvasc PO 10 mg DAILY SANDRA Administration Dextrose 25 ml 07/06/19 04:15 D50w IVP ONCE PRN hypoglycemia prot ocol Protocol Dextrose 50 ml 07/06/19 04:15 D50w IVP PRN PRN hypoglycemia prot ocol Protocol Docusate Sodium 100 mg 07/06/19 09:00 07/10/19 08:54 Colace PO 100 mg BID SANDRA Administration Glucagon 1 mg 07/06/19 04:15 Glucagen IM ONCE PRN Adult Acute Hypog lycemia Prot. Protocol Heparin Sodium (Be ef Lung) 5,000 unit 07/06/19 03:26 07/09/19 16:20 Heparin SUBCUT 5,000 unit Q12H SANDRA Administration Hydralazine HCl 10 mg 07/08/19 10:15 Apresoline IVP Q4H PRN SYSTOLIC BLOOD [place] ESSURE Dextrose 500 mls @ 100 mls /hr 07/06/19 04:15 D5w IV ONCE PRN Adult Acute Hypog lycemia Prot Protocol Insulin Aspart 0 unit 07/06/19 08:00 07/10/19 08:51 Novolog SUBCUT 2 unit WM&BEDTIME SANRDA Administration Protocol Lactulose 30 gm 07/09/19 21:00 07/10/19 08:54 Constulose PO 30 gm TID SANDRA Administration Lidocaine 1 patch 07/06/19 21:00 07/10/19 08:53 Lidoderm 5% Patc h TOPICAL 1 patch [id number] SANDRA Administration Nystatin 1 applic 07/06/19 09:00 07/10/19 08:55 Nystatin Powder TOPICAL 1 mg BID SANDRA Administration Ondansetron HCl 4 mg 07/06/19 03:26 Zofran PO Q8H PRN NAUSEA Tramadol HCl 100 mg 07/06/19 14:46 07/10/19 08:52 Ultram PO 100 mg Q4H PRN Administration MODERATE PAIN No Known Allergies Allergy (Verified 07/05/19 18:21) Vitals/I&O/Wt Last Vital Signs Temp 97.8 F 07/10/19 07:55 Pulse 78 07/10/19 07:55 Resp 20 H 07/10/19 07:55 BP 165/72 07/10/19 07:55 Pulse Ox 93 07/10/19 07:55 07/09/19 07/10/19 07/10/19 22:59 06:59 14:59 Intake Total 240 / 480 350 / 830 Output Total 1600 / 1600 Balance 240 / 480 -1250 / -770 Weight last 48 hrs Weight 205.795 kg Weight 202.302 kg Physical Exam Const: COMMON NORMALS: no apparent distress, oriented x3 and alert GENERAL APPEARANCE: cooperative and comfortable NUTRITIONAL APPEARANCE: obese (Severely morbidly obese) ORIENTATION/CONSCIOUSNESS: Yes oriented to person, Yes oriented to place and Yes oriented to time OTHER: Resting in bariatric recliner HENMT: COMMON NORMALS: normocephalic and head/scalp atraumatic HEAD & SCALP: normocephalic and atraumatic Eye: COMMON NORMALS: PERRL, EOMs intact bilaterally and no scleral icterus PUPIL: Yes PERRL Neck/C-Spine: GENERAL: Yes other (short, thick neck) Resp: COMMON NORMALS: normal respiratory effort EFFORT & INSPECTION: Yes able to speak in complete sentences and Yes other (examination significantly limited by body habitus, on RA) Cardio: COMMON NORMALS: regular rate, regular rhythm, S1 normal heart sound and S2 normal heart sound RATE: regular rate RHYTHM: regular rhythm HEART SOUNDS: S1 normal and S2 normal OTHER: exam limited by body habitus GI: INSPECTION: Yes central obesity (large pannus) and Yes visible herniation (umbilical and ventral, both reducible) : BLADDER/KIDNEY EXAM: Yes catheter in place Extremity: OTHER: Noted brawny edema of bilateral LEs, KIRTI hose on Neuro: COMMON NORMALS: oriented x3 SENSORIUM/ORIENTATION: Yes alert, Yes oriented to person, Yes oriented to place and Yes oriented to time GAIT: Yes unable to assess gait (currently unable to weight-bear) Psych: COMMON NORMALS: mental status grossly normal, thought process normal, cooperative, affect normal and speech normal SPEECH: Yes normal speech THOUGHT PROCESS: normal thought process Skin: NARRATIVE SKIN EXAM: -small area of macerated skin on R posterior mid thigh area with some oozing noted. GENERAL SKIN EXAM: other (Noted cheyanne mosqueda ma of bilateral lower extremities) Urinary Catheter Management^: Allen: Cath Placed During This Visit: no A&P Assessment and plan (1) Acute renal failure: -from review of medical record, appears to have at least CKD stage 3, with prior baseline creatinine around 1.5-1.6. -Suspect acute renal impairment is multifactorial given medications such as ARCHANA inhibitor, diuretics, potassium supplements, multiple laxatives and metformin all of which are currently on hold. -Avoid other nephrotoxins, renally dose meds -Imaging reviewed with noted normal kidneys, no indication of hydronephrosis -UA noted with proteinuria, sterile bacteriuria -Will d/c gentle IV fluids, encourage oral hydration -Noted slight increase in phosphorus, uric acid. Magnesium within normal limits. -Continue to monitor electrolytes particularly potassium; and renal function -Allen catheter placed, continue to monitor urine output; assess daily for removal Status: Acute Qualifiers: Acute renal failure type: with acute tubular necrosis Qualified Code(s): N17.0 - Acute kidney failure with tubular necrosis Code(s): N17.9 - Acute kidney failure, unspecified (2) Acute metabolic encephalopathy: -Noted to have multiple electrolyte abnormalities and renal impairment (uremia); these are improving -Baseline mental status appears to be alert and oriented x3; returned to his baseline -CT head indicative of atrophy, no other acute findings -correction of electrolytes and renal function as noted below -fall precautions -reorient as needed -no signs of acute infection at this time Status: Resolved Code(s): G93.41 - Metabolic encephalopathy (3) Adrenal mass: -Noted enlarging right adrenal mass which had been noted in CT scan of the abdomen done in October 2016; at that time was suspicious for adenoma. Will likely need follow-up evaluation/imaging -Random cortisol within normal limits Status: Acute Code(s): E27.8 - Other specified disorders of adrenal gland (4) Weakness: -Likely related to acute electrolyte abnormalities; weakness continues to improve -Fall precautions -PT/OT evaluations appreciated Status: Acute Code(s): R53.1 - Weakness Additional A&P Information Additional A&P Information: -Morbid obesity: BMI-66 kg/m2 -Acute on chronic normocytic anemia, has history of iron deficiency anemia. Baseline hemoglobin appears to be 8-9. Will transfuse additional unit of PRBCs for a total of 2 units. Continue to monitor H&H closely. -Hypertension; on amlodipine, other oral antihypertensives on hold secondary to renal impairment -[id number]-qrlftqumd DM type II; A1c-7.1. On diabetic diet as tolerated. Continue to hold metformin. Accu-Cheks, ISS -Multilevel DJD; pain control as needed -History of chronic lower extremity edema, was previously been seen in wound care clinic chronically wears KIRTI hose. History of peripheral vascular disease with venous stasis ulcers -Hyperkalemia, likely secondary to potassium supplementation. Continue to hold potassium supplementation and monitor potassium. Will give additional dose of kayexelate and calcium gluconate -Extensive intertigo involving pannus and inguinal areas: continue nystatin powder and already received oral dose of Fluconazole. Keep skin areas clean and dry -Chronic constipation -DVT ppx with heparin. Will hold heparin for now due to worsening anemia -Dispo: home -Code status: FULL code Attestations Medical Necessity Statement*: Patient requires hospitalization for continued management of acute anemia, requiring transfusion of blood products, continue management of acute renal failure. Coding Level of Care Code Acute Veterans Services Specialist for Gisela Fwsaadia Exam Problem Focused Diagnoses Acute renal failure N17.0 Acute renal failure type: with acute tubular necrosis Acute metabolic encephalopathy G93.41 Adrenal mass E27.8 Weakness R53.1
[2019-07-10 11:36] LABS: Glucose Point of Care 183 mg/dL (70-110)
[2019-07-10 15:05] LABS: Hematocrit 30.8 % (42.0-52.0); Hemoglobin 8.3 g/dL (11.7-16.6)
[2019-07-10] MEDS: sodium chloride 0.9% 100 ML 50 ML (15:21)
[2019-07-10] MEDS: FUROsemide 10 mg/mL SDV 2mL 20 MG IVP (15:28)
[2019-07-10 16:43] LABS: Glucose Point of Care 157 mg/dL (70-110)
--- NOTE | 2019-07-10 18:49 | PC.OT ---
Patient and request discharge from OT treatment at this time. reports that she is able to help patient with self-care, and will be able to assist him when he is discharged home. Patient agrees that is able to sufficiently help him. Patient is therefore being discharged, per his wishes.
[2019-07-10 21:43] LABS: Glucose Point of Care 164 mg/dL (70-110)
[2019-07-11 04:00] VITALS: BP 129/72; PULSE 77; RESP 20; TEMP 36.7; O2SAT 91
[2019-07-11 05:48] LABS: Basophils % 0.1 %; Eosinophils # 0.3 10^3/uL (0.0-0.8); Eosinophils % 3.1 %; Hematocrit 32.3 % (42.0-52.0); Hemoglobin 8.6 g/dL (11.7-16.6); Lymphocytes # 0.7 10^3/uL (0.8-4.8); Lymphocytes % 8.1 %; Mean Corpuscular HGB Conc 26.6 g/dL (30.0-36.0); Mean Corpuscular Hemoglobin 23.8 pg (28.0-34.0); Mean Corpuscular Volume 89.5 fL (80-94); Mean Platelet Volume 8.8 fL (7.4-10.4); Monocytes # 0.7 10^3/uL (0.2-0.9); Monocytes % 8.1 %; Neutrophils # 6.7 10^3/uL (1.8-7.7); Neutrophils % 79.9 %; Nucleated Red Blood Cells % 0 %; Platelet Count 290 10^3/cmm (130-400); Red Blood Count 3.61 10^6/uL (4.1-5.3); White Blood Count 8.4 10^3/uL (4.0-10.0)
[2019-07-11 06:01] LABS: Blood Urea Nitrogen 42 mg/dL (8-23); Calcium 9.3 mg/Dl (8.8-10.2); Carbon Dioxide 19 mmol/L (22-29); Chloride 109 mmol/L (98-107); Glomerular Filtration Rate 25.7 mL/min (90-130); Glucose 118 mg/dL (74-106); Sodium 138 mmol/L (136-145)
[2019-07-11 07:01] LABS: Glucose Point of Care 115 mg/dL (70-110)
[2019-07-11 07:24] VITALS: BP 126/62; PULSE 79; RESP 18; TEMP 36.9; O2SAT 94
[2019-07-11] MEDS: amlodipine 10 mg Tablet PO (08:49)
[2019-07-11] MEDS: lactulose oral liq 20 gm/30 mL UDC 30 GM PO ×3 (08:49→22:10)
[2019-07-11] MEDS: docusate sodium 100 mg Capsule PO ×2 (08:49→17:37)
[2019-07-11] MEDS: lidocaine 5% Patch 1 PATCH TOPICAL (08:51)
[2019-07-11 11:00] VITALS: PULSE 88; O2SAT 94
[2019-07-11 11:20] LABS: Glucose Point of Care 136 mg/dL (70-110)
[2019-07-11 11:35] VITALS: BP 144/66; PULSE 81; RESP 18; TEMP 37.2; O2SAT 94
--- NOTE | 2019-07-11 12:18 | P.PN_ITS ---
Subjective Subjective: Interval history: AM labs noted, stable Cr, will resume gentle IVF hydration, had 1450 mL urine output overnight. Hg improved. Patient seen and examined, resting in bed, at bedside, reports feeling well, discussed renal function today and need to resume gentle IV fluid hydration. He has not had any bowel movements so far today. Seems to be in good spirits, no complaints currently. Medications: Reviewed: Yes Medication Review Details: Active Medications Generic Name Dose Route Start Last Admin Trade Name Freq PRN Reason Stop Dose Admin Acetaminophen 650 mg 07/06/19 03:26 Tylenol PO Q6H PRN Mild/Mod Pain Or Temp >/= 101 Amlodipine Besylat e 10 mg 07/06/19 09:00 07/11/19 08:49 Norvasc PO 10 mg DAILY SANDRA Administration Dextrose 25 ml 07/06/19 04:15 D50w IVP ONCE PRN hypoglycemia prot ocol Protocol Dextrose 50 ml 07/06/19 04:15 D50w IVP PRN PRN hypoglycemia prot ocol Protocol Docusate Sodium 100 mg 07/06/19 09:00 07/11/19 08:49 Colace PO 100 mg BID SANDRA Administration Glucagon 1 mg 07/06/19 04:15 Glucagen IM ONCE PRN Adult Acute Hypog lycemia Prot. Protocol Heparin Sodium (Be ef Lung) 5,000 unit 07/06/19 03:26 07/09/19 16:20 Heparin SUBCUT 5,000 unit Q12H SANDRA Administration Hydralazine HCl 10 mg 07/08/19 10:15 Apresoline IVP Q4H PRN SYSTOLIC BLOOD SD ESSURE Dextrose 500 mls @ 100 mls /hr 07/06/19 04:15 D5w IV ONCE PRN Adult Acute Hypog lycemia Prot Protocol Sodium Chloride 1,000 mls @ 75 ml s/hr 07/11/19 12:30 Sodium Chloride 0.9% IV .[id number] SANDRA Insulin Aspart 0 unit 07/06/19 08:00 07/11/19 09:06 Novolog SUBCUT Not Given WM&BEDTIME SANDRA Protocol Lactulose 30 gm 07/09/19 21:00 07/11/19 08:49 Constulose PO 30 gm TID SANDRA Administration Lidocaine 1 patch 07/06/19 21:00 07/11/19 08:51 Lidoderm 5% Patc h TOPICAL 1 patch [id number] [facility] Administration Nystatin 1 applic 07/06/19 09:00 07/11/19 01:10 Nystatin Powder TOPICAL Not Given BID [facility] Ondansetron HCl 4 mg 07/06/19 03:26 Zofran PO Q8H PRN NAUSEA Tramadol HCl 100 mg 07/06/19 14:46 07/10/19 16:43 Ultram PO 100 mg Q4H PRN Administration MODERATE PAIN No Known Allergies Allergy (Verified 07/05/19 18:21) Vitals/I&O/Wt Last Vital Signs Temp 98.9 F 07/11/19 11:35 Pulse 81 07/11/19 11:35 Resp 18 07/11/19 11:35 BP 144/66 07/11/19 11:35 Pulse Ox 94 07/11/19 11:35 07/10/19 07/11/19 07/11/19 22:59 06:59 14:59 Intake Total 490 / 1320 480 / 480 Output Total 1900 / 1900 550 / 2450 Balance -1410 / -580 -550 / -1130 480 / 480 Weight last 48 hrs Weight 203.209 kg Weight 207.655 kg Weight 205.477 kg Weight 205.795 kg Physical Exam Const: COMMON NORMALS: no apparent distress, oriented x3 and alert GENERAL APPEARANCE: cooperative and comfortable NUTRITIONAL APPEARANCE: obese (Severely morbidly obese) ORIENTATION/CONSCIOUSNESS: Yes oriented to person, Yes oriented to place and Yes oriented to time OTHER: Resting in bariatric recliner HENMT: COMMON NORMALS: normocephalic and head/scalp atraumatic HEAD & SCALP: normocephalic and atraumatic Eye: COMMON NORMALS: PERRL, EOMs intact bilaterally and no scleral icterus PUPIL: Yes PERRL Neck/C-Spine: GENERAL: Yes other (short, thick neck) Resp: COMMON NORMALS: normal respiratory effort EFFORT & INSPECTION: Yes able to speak in complete sentences and Yes other (examination significantly limited by body habitus, on RA) Cardio: COMMON NORMALS: regular rate, regular rhythm, S1 normal heart sound and S2 normal heart sound RATE: regular rate RHYTHM: regular rhythm HEART SOUNDS: S1 normal and S2 normal OTHER: exam limited by body habitus GI: INSPECTION: Yes central obesity (large pannus) and Yes visible herniation (umbilical and ventral, both reducible) : BLADDER/KIDNEY EXAM: Yes catheter in place Extremity: OTHER: Noted brawny edema of bilateral LEs, KIRTI hose on Neuro: COMMON NORMALS: oriented x3 SENSORIUM/ORIENTATION: Yes alert, Yes oriented to person, Yes oriented to place and Yes oriented to time GAIT: Yes unable to assess gait (currently unable to weight-bear) Psych: COMMON NORMALS: mental status grossly normal, thought process normal, cooperative, affect normal and speech normal SPEECH: Yes normal speech THOUGHT PROCESS: normal thought process Skin: NARRATIVE SKIN EXAM: -small area of macerated skin on R posterior mid thigh area with some oozing noted. GENERAL SKIN EXAM: other (Noted brawny edema of bilateral lower extremities) Urinary Catheter Management^: Allen: Cath Placed During This Visit: no A&P Assessment and plan (1) Acute renal failure: -from review of medical record, appears to have at least CKD stage 3, with prior baseline creatinine around 1.5-1.6. -Suspect acute renal impairment is multifactorial given medications such as ARCHANA inhibitor, diuretics, potassium supplements, multiple laxatives and metformin all of which are currently on hold. -Avoid other nephrotoxins, renally dose meds -Imaging reviewed with noted normal kidneys, no indication of hydronephrosis -UA noted with proteinuria, sterile bacteriuria -Will resume gentle IV fluids, encourage oral hydration -Noted slight increase in phosphorus, uric acid. Magnesium within normal limits. -Continue to monitor electrolytes particularly potassium; and renal function -Allen catheter placed, continue to monitor urine output; assess daily for removal Status: Acute Qualifiers: Acute renal failure type: with acute tubular necrosis Qualified Code(s): N17.0 - Acute kidney failure with tubular necrosis Code(s): N17.9 - Acute kidney failure, unspecified (2) Adrenal mass: -Noted enlarging right adrenal mass which had been noted in CT scan of the abdomen done in October 2016; at that time was suspicious for adenoma. Will likely need follow-up evaluation/imaging -Random cortisol within normal limits Status: Acute Code(s): E27.8 - Other specified disorders of adrenal gland (3) Weakness: -Likely related to acute electrolyte abnormalities; weakness continues to improve -Fall precautions -PT/OT evaluations appreciated Status: Acute Code(s): R53.1 - Weakness Additional A&P Information Additional A&P Information: -Morbid obesity: BMI-66 kg/m2 -Acute on chronic normocytic anemia, has history of iron deficiency anemia. Baseline hemoglobin appears to be 8-9. Hg at baseline after transfusion of 2 units of PRBCs. Continue to monitor H&H closely. -Hypertension; on amlodipine, other oral antihypertensives on hold secondary to renal impairment -[id number] DM type II; A1c-7.1. On diabetic diet as tolerated. Continue to hold metformin. Accu-Cheks, ISS -Multilevel DJD; pain control as needed -History of chronic lower extremity edema, was previously been seen in wound care clinic chronically wears KIRTI hose. History of peripheral vascular disease with venous stasis ulcers -Hyperkalemia, likely secondary to potassium supplementation. Continue to hold potassium supplementation and monitor potassium. Will give additional dose of kayexelate and calcium gluconate -Extensive intertigo involving pannus and inguinal areas: continue nystatin powder and already received oral dose of Fluconazole. Keep skin areas clean and dry -Chronic constipation; has had several BMs so far -DVT ppx with heparin. May consider resuming heparin for now -Dispo: home -Code status: FULL code Attestations Medical Necessity Statement*: Patient requires hospitalization for continued management of acute renal impairment, resuming IVF hydration and needs continued monitoring of renal function. Coding Level of Care Code Acute Mural Painter for Alyceg Fwd Exam Problem Focused Diagnoses Acute renal failure N17.0 Acute renal failure type: with acute tubular necrosis Adrenal mass E27.8 Weakness R53.1
--- NOTE | 2019-07-11 14:04 | PC.CHAP ---
Pastoral Care Encounter/Spiritual Assessment Type of Contact [] Declined staff genetic counselor visit [] Patient/Family/Request visit [] Outpatient visit [] Follow-up visit [] Physician referral [] Code/Alert [X] Routine visit [] Staff referral [] Actively dying [] Patient sleeping [X] Family support [] [] Out of room [] Palliative care [] [] Receiving care in room [] Pre-surgical visit [] Trauma [] Long length of stay [] ICU visit [] Other: Relational/Emotional Strength [X] Patient feels connected with others/family/visitors/staff [] Distress [] Loneliness/isolation [] Abandonment Spirituality of Patient [X] Person of Kristine [] Attends Buddhism of their Kristine [X] Believes in Prayer [] Reads Bible or Religion materials [] There are Spiritual issues to be addressed Program Manager Interventions [X] Prayer [X] Active listening [X] Non-anxious presence [X] Spiritual/emotional support [] Crisis/trauma care [] Spiritual counseling [] Bereavement support [] Provided bereavement packet [] Provided Bible/devotional materials [] Provided toy/stuffed animal, coloring book to patient or family member [] Completed spiritual assessment [] Provided Communion [] Anointing/Wolsey [] Salvation [] Other: Impact on Illness or Injury [] Angry [] Fearful [] Anxious [] Often cries [] Exhaustion [] Unable to work [] Unable to attend catholic [] Unable to walk/stand [] Unable to read [] Unable to drive [] Unable to eat/drink [] Unable to sleep [] Unable to be with family [] Other: Summary PATIENT WAS VISITING WITH , BOTH WERE VERY NICE PEOPLE. gore seamer HAD PRAYER WITH BOTH. Time spent with patient 10 MIN.
[2019-07-11] MEDS: TRAMadol 50 mg Tablet 100 MG PO ×2 (14:58→22:11)
[2019-07-11] MEDS: nystatin powder 15 gm Btl 1 APPLIC TOPICAL ×2 (14:58→17:38)
[2019-07-11] MEDS: sodium chloride 0.9% 1,000 ML 75 ML IV (15:03)
[2019-07-11 15:16] VITALS: BP 147/62; PULSE 81; RESP 18; TEMP 36.7; O2SAT 93
[2019-07-11 16:58] LABS: Glucose Point of Care 141 mg/dL (70-110)
[2019-07-11] MEDS: heparin 5,000 unit/mL INJ 1 mL 5000 UNIT SUBCUT (17:38)
--- NOTE | 2019-07-11 18:18 | DCPLANNER ---
Pg 2 of IM updated & reviewed with pt & spouse, no questions, copy provided.
[2019-07-11 20:00] VITALS: BP 129/68; PULSE 79; RESP 20; TEMP 36.9; O2SAT 92
[2019-07-11 22:04] LABS: Glucose Point of Care 167 mg/dL (70-110)
[2019-07-12] VITALS (7 sets, daily range): BP systolic 140–156; BP diastolic 68–79; PULSE 73–92; RESP 18–20; TEMP 36.4–37.6; O2SAT 81–93
[2019-07-12] MEDS: heparin 5,000 unit/mL INJ 1 mL 5000 UNIT SUBCUT (04:18)
[2019-07-12 07:00] LABS: Basophils % 0.4 %; Eosinophils # 0.2 10^3/uL (0.0-0.8); Eosinophils % 2.9 %; Hematocrit 31.6 % (42.0-52.0); Hemoglobin 8.4 g/dL (11.7-16.6); Lymphocytes % 12.2 %; Mean Corpuscular HGB Conc 26.6 g/dL (30.0-36.0); Mean Corpuscular Hemoglobin 23.9 pg (28.0-34.0); Mean Platelet Volume 8.7 fL (7.4-10.4); Monocytes # 0.7 10^3/uL (0.2-0.9); Monocytes % 9.1 %; Neutrophils # 5.8 10^3/uL (1.8-7.7); Neutrophils % 74.8 %; Nucleated Red Blood Cells % 0 %; Platelet Count 278 10^3/cmm (130-400); Red Blood Count 3.51 10^6/uL (4.1-5.3); Red Cell Distribution Width 21.2 % (12.1-15.1); White Blood Count 7.8 10^3/uL (4.0-10.0)
[2019-07-12 07:08] LABS: Glucose Point of Care 115 mg/dL (70-110)
[2019-07-12 07:20] LABS: Anion Gap 14.9 (5-19); Blood Urea Nitrogen 39 mg/dL (8-23); Calcium 9.1 mg/Dl (8.8-10.2); Carbon Dioxide 20 mmol/L (22-29); Chloride 107 mmol/L (98-107); Glucose 108 mg/dL (74-106); Potassium 4.9 mmol/L (3.5-5.1); Sodium 137 mmol/L (136-145)
[2019-07-12] MEDS: lactulose oral liq 20 gm/30 mL UDC 30 GM PO (08:51)
[2019-07-12] MEDS: docusate sodium 100 mg Capsule PO (08:51)
[2019-07-12] MEDS: amlodipine 10 mg Tablet PO (08:51)
[2019-07-12] MEDS: lidocaine 5% Patch 1 PATCH TOPICAL (09:53)
[2019-07-12] MEDS: nystatin powder 15 gm Btl 1 APPLIC TOPICAL (09:55)
[2019-07-12 11:23] LABS: Glucose Point of Care 150 mg/dL (70-110)
--- NOTE | 2019-07-12 12:25 | DCPLANNER ---
*IMM* Patient received The important message from medic[employer]. Signed and placed in the chart. Patient now has a copy.
--- NOTE | 2019-07-12 13:03 | PM.DCS ---
Discharge Providers Date of Admission: 07/06/19 02:49 Date of Discharge: 07/12/19 Attending Provider at Admission: Anna Rader MD Attending Provider at Discharge: Israel Montague Diagnoses at Discharge Discharge Diagnosis (1) Acute renal failure: Status: Acute Qualifiers: Acute renal failure type: with acute tubular necrosis Qualified Code(s): N17.0 - Acute kidney failure with tubular necrosis (2) Adrenal mass: Status: Acute (3) Weakness: Status: Acute Reason for Visit Reason for Visit: Reason For Visit: [facility] Hospital Course Hospital Course: 68-year-old gentleman with hypertension, DM 2, morbid obesity was admitted after presenting with generalized weakness, confusion, found to have hyperkalemia potassium of 6.3, acute kidney injury with creatinine of 3.5. At home on lisinopril, furosemide and metformin. These medications were held. Received a fluid challenge, subsequently with diuretics. Received a dose of Kayexalate. His renal function has been gradually improving. Creatinine has come down to 2.4 today. Hyperkalemia improved. He is feeling stronger and is happy about returning home. His mental status is better. Discussed with him we would discontinue potassium supplements, hold lisinopril and metformin until renal function is stabilized and these may be resumed by his primary care provider. For now continue amlodipine for blood pressure. We will start on low-dose glipizide for diabetes while metformin is being held. he has been receiving nystatin powder and had 1 dose of Diflucan for significant intertrigo. Please monitor his volume status and resume diuresis as appropriate. Please assist him with weight loss options. Consider referral for weight loss surgery. Enlarging right adrenal mass was seen on CT abdomen pelvis without contrast. This would need additional evaluation by either MRI, however, he could not undergo this due to weight limits. Alternatively adrenal CT with and without contrast once his renal function stabilizes could be considered. Please revisit this in office. Physical Exam Const: COMMON NORMALS: no apparent distress and oriented x3 NUTRITIONAL APPEARANCE: obese morbidly obese HENMT: COMMON NORMALS: oropharynx normal Neck/C-Spine: COMMON NORMALS: no JVD Resp: COMMON NORMALS: normal respiratory effort and clear to auscultation bilaterally AUSCULTATION: clear to auscultation bilaterally Cardio: COMMON NORMALS: no JVD, regular rhythm, S1 normal heart sound, S2 normal heart sound and no murmurs RHYTHM: regular rhythm HEART SOUNDS: S1 normal and S2 normal GI: COMMON NORMALS: normal to inspection, nondistended, normoactive bowel sounds, soft to palpation and non-tender PALPATION: Yes soft OTHER: Large pannus. Extremity: COMMON NORMALS: no joint enlargement and no pedal edema NARRATIVE EXTREMITY EXAM: KIRTI hose in place. Neuro: COMMON NORMALS: oriented x3 and moves all extremities Skin: COMMON NORMALS: no rashes or lesions noted GENERAL SKIN EXAM: no rashes or lesions noted Urinary Catheter Management^: Allen: Cath Placed During This Visit: no Discharge Data Data Completed and Pending: Completed Studies During Hospitalization Category Date Time Status CT abdomen pelvis wo con [id number] Urge nt Cat Scan 07/05/19 23:[address] head wo con* 7 [id number] Urgent Cat Scan 07/05/19 18:36 Completed Labs from last 24 hours 07/12/19 07/12/19 07/12/19 10:56 06:51 06:27 WBC RBC Hgb Hct MCV MCH MCHC RDW Plt Count MPV Neut % (Auto) Lymph % (Auto) [place] % (Auto) Eos % (Auto) Baso % (Auto) Neut # (Auto) Lymph # (Auto) [place] # (Auto) Eos # (Auto) Baso # (Auto) Nucleated RBC % (a uto) Nucleated RBCs # Sodium 137 Potassium 4.9 Chloride 107 Carbon Dioxide 20 L Anion Gap 14.9 BUN 39 H Creatinine 2.4 H GFR Calculation 27.0 L Glucose 108 H POC Glucose 150 115 Calcium 9.1 07/12/19 07/11/19 07/11/19 06:27 21:25 16:46 WBC 7.8 RBC 3.51 L Hgb 8.4 L Hct 31.6 L MCV 90.0 MCH 23.9 L MCHC 26.6 L RDW 21.2 H Plt Count 278 MPV 8.7 Neut % (Auto) 74.8 Lymph % (Auto) 12.2 [place] % (Auto) 9.1 Eos % (Auto) 2.9 Baso % (Auto) 0.4 Neut # (Auto) 5.8 Lymph # (Auto) 1.0 [place] # (Auto) 0.7 Eos # (Auto) 0.2 Baso # (Auto) 0.0 Nucleated RBC % (a uto) 0 Nucleated RBCs # 0.0 Sodium Potassium Chloride Carbon Dioxide Anion Gap BUN Creatinine GFR Calculation Glucose POC Glucose 167 141 Calcium Vitals: Last Vital Signs Temp 97.7 F 07/12/19 11:15 Pulse 76 07/12/19 11:15 Resp 18 07/12/19 11:15 BP 156/79 07/12/19 11:15 Pulse Ox 92 07/12/19 11:15 Discharge Plan Discharge Patient Disposition: Home, Self-Care Condition: Stable Prescriptions: New nystatin 100,000 unit/gram cream 1 applic TOPICAL BID Qty: 30 RF: 0 glipizide 5 mg tablet 2.5 mg PO DAILY Qty: 15 RF: 0 Continued amlodipine 10 mg Tablet 10 mg PO DAILY RF: 0 Laxative (sennosides) 25 mg Tablet 25 mg PO BID RF: 0 Stool Softener 100 mg Tablet 100 mg PO BID RF: 0 Held metformin 1,000 mg Tablet 1,000 mg PO BID RF: 0 Hold Instructions: Resume on 08/09/19. This medication may be resumed by her primary care provider once renal function stable. furosemide 20 mg Tablet 20 mg PO DAILY RF: 0 Hold Instructions: Resume on 08/09/19. Discontinued potassium chloride 10 mEq Tablet Extended Release 10 meq PO DAILY RF: 0 lisinopril 40 mg Tablet 40 mg PO BID RF: 0 Discharge Orders: Discharge Order (Routine); Ordered 07/12/19 Ordered By: Israel Montague Other Ambulatory Orders: Basic Metabolic Panel (Routine) Timeframe: 3 Days Facility: [facility] - Location: Lab - Main Lab Ordered By: Israel Montague Referrals: Meliton Mario Jr, MD [Family Provider] - Discharge Diet: Consistent carbohydrate, heart healthy, low fat, low sodium Discharge Activity: Resume usual activity Activity Restrictions/Additional Instructions: Please measure blood pressure and blood glucose 3 times daily. Record values to bring to your appointment. Please discuss with your primary care provider regarding 4.0 x 4.6 by 4.9 cm right adrenal gland mass. Discharge Attestations Time Spent in Discharge Care*: greater than 30 min Quality Metrics Clinical Quality Measures During this hospital stay, did patient experience: None Coding Level of Care Code Acute Safety Representative for Chg Fwd Diagnoses Acute renal failure N17.0 Acute renal failure type: with acute tubular necrosis Adrenal mass E27.8 Weakness R53.1
== END 2019-07-12 15:30 | disposition home or self-care (01) | DRG 682 ==
LOC: ER 07-06 02:27 → MEDSURG 07-06 02:50
PROVIDERS: Family Medicine; Admitting Provider Hospitalist; Emergency Provider Emergency Medicine; Family Provider Family Medicine; Visit Provider Internal Medicine
DX: N17.0 Acute kidney failure with tubular necrosis (principal); G93.41 Metabolic encephalopathy; I13.0 Hypertensive heart and chronic kidney disease with heart failure and stage 1 through stage 4 chronic kidney disease, or unspecified chronic kidney disease; Z68.43 Body mass index [BMI] 50.0-59.9, adult; E87.5 Hyperkalemia; E27.8 Other specified disorders of adrenal gland; E66.01 Morbid (severe) obesity due to excess calories; Z79.84 Long term (current) use of oral hypoglycemic drugs; F17.290 Nicotine dependence, other tobacco product, uncomplicated; N18.9 Chronic kidney disease, unspecified; E11.22 Type 2 diabetes mellitus with diabetic chronic kidney disease; I50.9 Heart failure, unspecified; B35.4 Tinea corporis
CPT/HCPCS: 12345; 36415; 36416; 36430; 51702; 70450; 74176; 80048; 80053; 81003; 82140; 82533; 82570; 82962; 83036; 83735; 83880; 84100; 84132; 84300; 84484; 84550; 85014; 85018; 85025; 86850; 86900; 90686; 93005; 96372; 96375; 97110; 97161; 97166; 97530; 99282; J0610; J1644; J1815; J1940; J7030; P9016

== ENCOUNTER 2020-03-30 11:22 | Outpatient (CLI) | payer MEDICARE, SELFPAY ==
--- NOTE | 2020-03-30 11:41 | XR_ITS ---
WS: [id number] Right clavicle, 2 views, 03/30/2020 Clinical Data: R SHOULDER PAIN Comparison: None. Findings: No fractures or dislocations are seen. The AC joint is normal. The soft tissues are unremarkable. There is an anterior subcoracoid dislocation right humeral head. XR/[place] [id number] Impression: Negative right clavicle.
--- NOTE | 2020-03-30 11:41 | XR_ITS ---
WS: [id number] Right shoulder, 3 views, 03/30/2020 Clinical Data: R SHOULDER PAIN Comparison: None. Findings: On the initial view there may be a anterior subcoracoid dislocation. However on views #2 and 3 the h umeral head is in good location. No fractures are seen. XR/XR shoulder RT min 2V* [id number] Impression: Probable relocation of right humeral head into normal location.
== END 2020-03-30 11:23 | disposition home or self-care (01) ==
LOC: RAD 11:30
PROVIDERS: PCP Nurse Practitioner Family; Visit Provider Nurse Practitioner Family
DX: M25.511 Pain in right shoulder (principal)
CPT/HCPCS: 73000; 73030